=== PATIENT | female | born 1945 | race Caucasian/White ===

== ENCOUNTER → 2020-11-19 07:21 | Outpatient (CLI) | payer MEDICARE, BC, MEDICAID, SELFPAY ==
[2020-11-21 12:11] LABS: Lithium (Eskalith(R)) 0.7 mmol/L (0.5-1.2)
== END ==
PROVIDERS: Visit Provider Emergency Medicine
DX: Z51.81 Encounter for therapeutic drug level monitoring (principal)
CPT/HCPCS: 36415; 80178

== ENCOUNTER → 2020-11-20 08:18 | Outpatient (CLI) | payer MEDICARE, BC, MEDICAID, SELFPAY ==
[2020-11-20 10:46] LABS: Basophils # 0.1 K/mm3 (0-0.2); Basophils % 0.6 % (0.1-2.0); Eosinophils # 0.2 K/mm3 (0.0-0.4); Eosinophils % 2.2 % (0.1-12.0); Hematocrit 41.9 % (37.0-47.0); Hemoglobin 13.8 g/dL (12.2-16.2); Lymphocytes # 1.1 K/mm3 (0.7-4.5); Lymphocytes % 10.4 % (10-50); Mean Corpuscular HGB Conc 32.9 g/dL (31.8-35.4); Mean Corpuscular Hemoglobin 28.1 pg (27.0-31.2); Mean Corpuscular Volume 85.4 fl (81-99); Mean Platelet Volume 9.3 fl (7.4-10.4); Monocytes # 0.5 K/mm3 (0.1-1.0); Monocytes % 5.2 % (1.7-9.3); Neutrophils # 8.3 K/mm3 (1.8-7.8); Neutrophils % 81.7 % (37.0-80.0); Platelet Count 257 K/mm3 (142-424); Red Blood Count 4.91 M/mm3 (4.20-5.40); Red Cell Distribution Width 15.2 % (11.5-17.5); White Blood Count 10.1 K/mm3 (4.8-10.8)
[2020-11-20 11:17] LABS: Chloride 106 mmol/L (98-107); Sodium 138 mmol/L (136-145)
[2020-11-20 11:20] LABS: Blood Urea Nitrogen 13 mg/dl (7-17); Estimated Glomerular Filt Rate 54 ml/min (>60); GFR (African American) 66 ML/MIN (>60)
[2020-11-20 11:21] LABS: Calcium 9.2 mg/dl (8.4-10.2); Carbon Dioxide 20 mmol/L (22.0-30.0); Glucose 95 mg/dl (74-100)
== END ==
PROVIDERS: Visit Provider Emergency Medicine
DX: I10 Essential (primary) hypertension (principal)
CPT/HCPCS: 36415; 80048; 85025

== ENCOUNTER 2021-03-20 03:43 | Inpatient (IN) | payer MEDICARE, MEDICAID, SELFPAY ==
[2021-03-20] VITALS (32 sets, daily range): BP systolic 104–138; BP diastolic 42–88; PULSE 71–110; RESP 12–21; TEMP 36.6–43; O2SAT 86–98; BMI 31.1; BMI 32.3
[2021-03-20 04:21] LABS: Basophils # 0.1 K/mm3 (0-0.2); Basophils % 0.8 % (0.1-2.0); Eosinophils # 0.1 K/mm3 (0.0-0.4); Eosinophils % 0.5 % (0.1-12.0); Hematocrit 53.5 % (37.0-47.0); Hemoglobin 17.8 g/dL (12.2-16.2); Lymphocytes # 1.3 K/mm3 (0.7-4.5); Lymphocytes % 10.9 % (10-50); Mean Corpuscular HGB Conc 33.2 g/dL (31.8-35.4); Mean Corpuscular Hemoglobin 28.5 pg (27.0-31.2); Mean Corpuscular Volume 85.9 fl (81-99); Mean Platelet Volume 9.4 fl (7.4-10.4); Monocytes # 0.9 K/mm3 (0.1-1.0); Monocytes % 7.9 % (1.7-9.3); Neutrophils # 9.4 K/mm3 (1.8-7.8); Platelet Count 439 K/mm3 (142-424); Red Blood Count 6.23 M/mm3 (4.20-5.40); Red Cell Distribution Width 13.3 % (11.5-17.5); White Blood Count 11.8 K/mm3 (4.8-10.8)
[2021-03-20 04:27] LABS: Alanine Aminotransferase 23 U/L (12-78); Albumin Level 3.9 g/dl (3.5-5.0); Albumin/Globulin Ratio 1.1 (1.1-1.8); Alkaline Phosphatase 78 U/L (38-126); Anion Gap 15.4 mEq/L (5-15); Aspartate Amino Transferase 21 U/L (14-36); Bilirubin,Total 0.7 mg/dl (0.2-1.3); Blood Urea Nitrogen 77 mg/dl (7-17); Calcium 8.5 mg/dl (8.4-10.2); Carbon Dioxide 39 mmol/L (22.0-30.0); Creatinine Clearance Estimated 30 mL/min (50-200); Estimated Glomerular Filt Rate 24 ml/min (>60); GFR (African American) 30 ML/MIN (>60); Globulin 3.5 g/dL (1.3-3.2); Glucose 156 mg/dl (74-100); Potassium 3.4 mmoL/L (3.5-5.1); Sodium 126 mmol/L (136-145); Total Protein,Serum 7.4 g/dl (6.3-8.2)
[2021-03-20 04:32] LABS: C-Reactive Protein 241.4 mg/L (0-4)
[2021-03-20 04:37] LABS: Chloride 75 mmol/L (98-107)
--- NOTE | 2021-03-20 04:42 | PC.NURSE ---
notified of critcal chorline 77
[2021-03-20 04:46] LABS: Procalcitonin 1.19 ng/mL (0.0-2.0)
[2021-03-20 04:53] LABS: Amylase 45 U/L (30-110); Lipase 11 U/L (23-300)
[2021-03-20 04:56] LABS: Erythrocyte Sedimentation Rate 1 mm/hr (0-30)
--- NOTE | 2021-03-20 05:12 | CT_ITS ---
PROCEDURE INFORMATION: Exam: CT Abdomen And Pelvis Without Contrast Exam date and time: 03/20/2021 5:12 AM Age: 75 years old Clinical indication: Nausea and vomiting; Abdominal pain; Generalized; Prior surgery TECHNIQUE: Imaging protocol: Computed tomography of the abdomen and pelvis without contrast. Radiation optimization: All CT scans at this facility use at least one of these dose optimization techniques: automated exposure control; mA and/or kV adjustment per patient size (includes targeted exams where dose is matched to clinical indication); or iterative reconstruction. COMPARISON: No relevant prior studies available. FINDINGS: Lungs: Patchy airspace consolidation is seen in the dependent portions of the right middle and lower lobes, compatible with either multifocal pneumonia or aspiration pneumonitis. There is a 1.9 x 1.4 cm fluid attenuation nodule in the medial basal portion of the left lower lobe (series 3, image 21), possibly related to chronic mucoid impaction. Pleural spaces: Trace right pleural effusion. Heart: Normal heart size. Coronary calcifications, not formally quantified on this exam. Mediastinal space: Small hiatal hernia. There is esophageal wall thickening suggesting esophagitis, but not fully evaluated on CT. There is fluid within the visualized mid and distal portions of the thoracic esophagus suggesting a large amount of gastroesophageal reflux. Liver: Mild hepatic steatosis. Gallbladder and bile ducts: Cholecystectomy. No biliary dilation. Pancreas: Mild pancreatic atrophy. Coarse calcifications in the pancreatic head suggesting sequela of prior pancreatitis. No findings to suggest acute pancreatitis. Spleen: Normal. No splenomegaly. Adrenal glands: Normal. No mass. Kidneys and ureters: Kidneys are mildly atrophic. No hydronephrosis. Stomach and bowel: Stomach is fluid-filled and distended. There is abnormal dilation of proximal and mid small bowel measure up to 4.5 cm in caliber. There is an abrupt transition point as small bowel enters the ventral abdominal hernia sac, with decompressed distal small bowel seen in the right lower quadrant. Findings are consistent with an acute high-grade mechanical small bowel obstruction. Colon is diffusely decompressed. There are numerous colonic diverticula, without evidence of acute diverticulitis. Appendix: No evidence of appendicitis. Intraperitoneal space: No pneumoperitoneum. No ascites. Vasculature: Scattered atherosclerotic calcifications. No abdominal aortic aneurysm. Lymph nodes: Prominent posterior mediastinal lymph nodes adjacent to the esophagus measuring up to 0.8 cm in short axis, probably reactive to esophagitis. Urinary bladder: Bladder is decompressed, limiting its evaluation. Reproductive: Hysterectomy. Bones/joints: No acute fracture. Prominent disc-osteophyte ridge at L5-S1 with associated neural foraminal stenosis. Rudimentary disc space at S1-S2. Mild levoconvex curvature. [id number] left and mild right hip osteoarthrosis. Soft tissues: Ventral abdominal hernia sac measuring approximately 8.7 x 5.7 x 8.1 cm, serving as transition point for the small-bowel obstruction. There is edema and vascular congestion within the hernia sac. Hernia neck measures approximately 2 cm. IMPRESSION: 1. Acute, high-grade mechanical small bowel obstruction with transition point in a ventral abdominal hernia sac. No bowel perforation. 2. Small hiatal hernia with suggested large amount of gastroesophageal reflux. 3. Patchy airspace consolidation in the right middle and lower lobes compatible with either pneumonia or aspiration pneumonitis. 4. Incid
--- NOTE | 2021-03-20 06:13 | PC.NURSE ---
MD Naldo speaking to [facility] at this time
--- NOTE | 2021-03-20 06:15 | XR_ITS ---
PROCEDURE INFORMATION: Exam: XR Chest Exam date and time: 03/20/2021 6:15 AM Age: 75 years old Clinical indication: Pain; On breathing TECHNIQUE: Imaging protocol: XR of the chest. Views: 1 view. COMPARISON: CT ABDOMEN PELVIS WO CON 03/20/2021 5:35 AM FINDINGS: Lungs: Patchy and nodular opacities are seen throughout the right mid to lower lung compatible with pneumonia or aspiration pneumonitis. Suggested 1.8 cm nodule at the left lung base in the retrocardiac region, as seen on CT abdomen/pelvis. Lungs appear hyperinflated, suggesting COPD. Pleural spaces: Trace right pleural effusion. No pneumothorax. Heart/Mediastinum: Normal heart size. Aortic atherosclerosis. Bones/joints: Osteopenia. Scattered degenerative changes. Gastrointestinal tract: Dilated small bowel is seen in the upper abdomen compatible with known small bowel obstruction. IMPRESSION: 1. Multifocal pneumonia or aspiration pneumonitis throughout the right mid and lower lung. Trace right pleural effusion. 2. COPD suggested. 3. Left basilar nodule, as better seen on CT.
--- NOTE | 2021-03-20 06:22 | ECG_ITS ---
APPROVED REPORT Exam: Resting ECG HR:104 bpm ECG Measurements Heart Rate 104 AXES CA 170 P 56 QRSd 78 QRS -55 QT 370 T 46 QTc 486 Conclusion Sinus tachycardia with premature atrial complexes Left anterior fascicular block Late R wave progression, old finding Abnormal ECG Electronically signed by : Baljit Hutson MD 03/21/2021 17:50:16
--- NOTE | 2021-03-20 06:26 | HMH.EDNVD ---
ED Disposition Clinical Impression: Small bowel obstruction, Severe sepsis with acute organ dysfunction, Ventral hernia with bowel obstruction, DYLAN (acute kidney injury), Hyponatremia, Obesity (BMI 30.0-34.9) Aspiration pneumonia Qualifiers: Aspiration pneumonia type: due to vomit Laterality: right Lung location: lower lobe of lung Qualified Code(s): J69.0 - Pneumonitis due to inhalation of food and vomit Unspecified dementia without behavioral disturbance Qualifiers: Dementia type: unspecified type Qualified Code(s): F03.90 - Unspecified dementia without behavioral disturbance Bipolar disorder, unspecified Qualifiers: Active/Remission status: remission status unspecified Qualified Code(s): F31.9 - Bipolar disorder, unspecified Disposition: Admitted As Inpatient Condition on Discharge: Serious - Critical Care Critical Care Time: No Attestation: On 03/20/21, the high probability of a clinically significant, sudden or life threatening deterioration of the following system(s) required my full and direct attention, intervention and personal management. The time I documented below is in addition to time spent performing reported procedures but includes the following listed in this critical care notation. Medical Decision Making - Medical Records Medical records reviewed: Yes: I reviewed the patient's medical records. - Ernesto Inquiry Pt receiving controlled substance: No Vital Signs: 03/20/21 03:44 03/20/21 04:19 03/20/21 05:00 Temperature 98.5 F Temperature Source Oral Pulse Rate 110 H 100 H Pulse Rate [Right Radial] 110 H Respiratory Rate 21 Blood Pressure 127/66 114/68 Blood Pressure [Right Arm] 118/61 Blood Pressure Mean [Right Arm] 80 Blood Pressure Source [Right Arm] Automatic Cuff Blood Pressure Position [Right Arm] Supine 02 Sat by Pulse Oximetry 86 L 95 95 Oxygen Delivery Method Room Air Oxygen Flow Rate (LPM) 2 2 03/20/21 06:00 03/20/21 06:30 Temperature Temperature Source Pulse Rate 99 H 102 H Pulse Rate [Right Radial] Respiratory Rate Blood Pressure 138/69 119/69 Blood Pressure [Right Arm] Blood Pressure Mean [Right Arm] Blood Pressure Source [Right Arm] Blood Pressure Position [Right Arm] 02 Sat by Pulse Oximetry 92 L 92 L Oxygen Delivery Method Nasal Cannula Oxygen Flow Rate (LPM) 2 - Lab Data Lab results reviewed: Yes: I reviewed the patient's lab results. Lab Results 03/20/21 04:00: WBC 11.8 H, RBC 6.23 H, Hgb 17.8 H, Hct 53.5 H, MCV 85.9, MCH 28.5, MCHC 33.2, RDW 13.3, Plt Count 439 H, MPV 9.4, Neut % (Auto) 80.0, Lymph % (Auto) 10.9, [place] % (Auto) 7.9, Eos % (Auto) 0.5, Baso % (Auto) 0.8, Neut # (Auto) 9.4 H, Lymph # (Auto) 1.3, [place] # (Auto) 0.9, Eos # (Auto) 0.1, Baso # (Auto) 0.1, ESR 1 03/20/21 04:00: Sodium 126 L, Potassium 3.4 L, Chloride 75 L, Carbon Dioxide 39 H, Anion Gap 15.4 H, BUN 77 H, Creatinine 2.00 H, Estimated Creat Clear 30, Estimated GFR 24 L, Est GFR ( Amer) 30 L, Glucose 156 H, Calcium 8.5, Total Bilirubin 0.7, AST 21, ALT 23, Alkaline Phosphatase 78, C-Reactive Protein 241.4 H, Total Protein 7.4, Albumin 3.9, Globulin 3.5 H, Albumin/Globulin Ratio 1.1, Procalcitonin 1.19 03/20/21 04:00: Amylase 45, Lipase 11 L Result diagrams: 03/20/21 04:00 03/20/21 04:00 Orders (Tests/Meds): ED MEDICATIONS Generic Name Dose Route Start Last Admin Trade Name Freq PRN Reason Stop Dose Admin Sodium Chloride 1,000 mls @ 999 mls/hr 03/20/21 07:00 03/20/21 06:49 Sod Chlor 0.9% 1000ml Bag IV 03/20/21 08:00 999 mls/hr .Q1H1M STEPHON Administration Piperacillin Sod/Tazobactam 50 mls @ 100 mls/hr 03/20/21 07:00 03/20/21 07:08 Sod 3.375 gm/ Sodium Chloride IV 04/03/21 06:59 100 mls/hr Q8H STEPHON Administration Clindamycin Phosphate 900 mg/ 106 mls @ 100 mls/hr 03/20/21 07:00 Sodium Chloride IV 04/03/21 06:59 Q8H STEPHON Discontinued Medications Generic Name Dose Route Start Last Admin Trade Name
--- NOTE | 2021-03-20 06:33 | CA_ITS ---
APPROVED REPORT EXAM: Comprehensive 2D, Doppler, and color-flow Echocardiogram Best Worker: Debi Appiah CRT Ht: 5 ft 2 in Wt: 170lbs BSA: 1.78 BP: 114/68 mmHg Indications: COPD, CAD, Hyperlipidemia, Hypertension/HDD, Pre-Op small bowel obstruction, ex smoker. TDE pt on her back due to abdominal pain and nausea/vomiting. Limited images 2D Dimensions LVOT 2.11 cm (M/F) 1.5-2.5 LA Volume 22.30 mL LA Volume Index 12.50 mL/m2 (M/F) 16-34 M-Mode Dimensions RVDd 2.57 cm (0.9-2.6) LA Diam 3.45 cm (1.9-4.0) LVDd 4.18 cm (3.5-5.7) Ao Diam 4.22 cm (2.0-3.7) LVDs 2.89 cm (3.5-5.7) IVSd 1.81 cm (0.6-1.1) PWd 1.00 cm (0.6-1.1) EF (Teich) 58.90% FS 30.90% EDV (Teich) 77.70 mL TAPSE 1.61 (<1.7) ESV (Teich) 31.90 mL LV Diastology E Decel Time 300.00 (160-240 msec) E/A Ratio 0.41 MED E' 4.90 (< 7 cm/sec) MED A' 8.00 cm/s E'/MED E' Ratio 10.02 (>14) LAT E' 6.20 (<10 cm/sec) LAT A' 10.20 cm/s E/LAT E' Ratio 7.92 (>14) Aortic Valve AO Peak GR. 7.60 mmHg Mitral Valve MV E Max Víctor. 49.00 (40-130 cm/s) MV A Velocity 119.00 (40-130 cm/s) E/A Ratio 0.41 MV Decel. Time 300.00 (160-240 ms) MV PHT 88.00 ms Tricuspid Valve TR P. Velocity 178.00 cm/s RAP Estimate 10.00 mmHg RVSP 22.70 mmHg Left Ventricle Left atrium is mildly enlarged, left ventricle is normal size, mild concentric left ventricular hypertrophy, visually estimated ejection fraction 55% with no obvious regional wall motion abnormality, endocardial surfaces are poorly visualized. Grade 1 diastolic dysfunction seen without tissue Doppler evidence of raise left atrial pressure. Right Ventricle Right atrium and right ventricle are normal size and contractility. Aortic Valve Aortic valve is minimally thickened and calcified without aortic stenosis or aortic insufficiency. Mitral Valve Mitral valve grossly normal, there is trace mitral regurgitation. Tricuspid Valve Tricuspid valve grossly normal, there is trace tricuspid regurgitation, tricuspid regurgitation jet velocity is inadequate for calculation of the right ventricular systolic pressure. Pulmonic Valve Pulmonic valve is poorly visualized. Great Vessels Aortic root is normal size. Inferior vena cava is poorly visualized. Pericardium No significant pericardial effusion noted. Conclusion 1. Technically difficult study because of the patient factors and poor acoustic windows. Mildly enlarged left atrium, normal left ventricular size, mild concentric left ventricular hypertrophy, visually estimated ejection fraction 55% with no obvious regional wall motion abnormality, endocardial surface of poorly visualized, grade 1 diastolic dysfunction seen without tissue Doppler evidence of raise left atrial pressure. 2. Trace mitral and tricuspid regurgitation. 3. No significant pericardial effusion noted. 4. Inferior vena cava is poorly visualized. Electronically signed by : Luke Ponce MD 03/21/2021 11:20:58
--- NOTE | 2021-03-20 06:35 | PC.NURSE ---
notified vascular of echo order @ this time
--- NOTE | 2021-03-20 06:38 | PC.NURSE ---
paged dr banks @ this time
--- NOTE | 2021-03-20 06:38 | PC.NURSE ---
Dr. Ying pagecharissa
[2021-03-20 06:45] LABS: Coronavirus 19, PCR Not Detected (NotDetected); Influenza A, PCR Not Detected (NotDetected); Influenza B, PCR Not Detected (NotDetected)
--- NOTE | 2021-03-20 06:46 | PC.NURSE ---
MD Naldo speaking to MD Deonna at this time
--- NOTE | 2021-03-20 06:57 | PC.NURSE ---
vascular @ bedside to perform echo
[2021-03-20 07:07] LABS: Lactic Acid 1.4 mmol/L (0.7-2.1)
--- NOTE | 2021-03-20 07:20 | PC.NURSE ---
per Dr. cAuña pt needs an NG tube inserted, to continuous low wall suction.
--- NOTE | 2021-03-20 07:37 | HMH.PHAVTE ---
[facility] Pharmacy VTE Monitoring - Patient Demographics Admission date: 03/20/21 Report Date: 03/20/21 Time: 07:37 Allergies/Adverse Reactions: Patient Allergies chlorhexidine [From Hibiclens] Allergy (Verified 03/20/21 07:31) Rash divalproex sodium [From Depakote] Allergy (Verified 03/20/21 07:31) Unknown allergy reaction lidocaine [From Lidoderm] Allergy (Verified 03/20/21 07:31) Rash nicotine [From Nicoderm CQ] Allergy (Verified 03/20/21 07:31) Rash Sulfa (Sulfonamide Antibiotics) Adverse Reaction (Verified 03/20/21 07:31) Nausea Height: 1.57 m Weight: 77.111 kg - VTE Risk Labs: VTE Related Lab Results Hgb 17.8 g/dL (12.2-16.2) H 03/20/21 04:00 Hct 53.5 % (37.0-47.0) H 03/20/21 04:00 Plt Count 439 K/mm3 (142-424) H 03/20/21 04:00 BUN 77 mg/dl (7-17) H 03/20/21 04:00 Creatinine 2.00 mg/dl (0.52-1.04) H 03/20/21 04:00 Estimated Creat Clear 30 mL/min (50-200) 03/20/21 04:00 - Prophylaxis VTE Prophylaxis Ordered?: Yes Types of VTE Prophylaxis: TEDS Knee High Location of Applied Device: Bilateral Lower Extremeties
--- NOTE | 2021-03-20 07:42 | PC.NURSE ---
This nurse with Yul[facility] Palomarse,RN spoke with daughter/POA (Olga Jon) to confirm DNR status.
--- NOTE | 2021-03-20 08:07 | HMH.CNCARD ---
History of Present Illness Consult date: 03/20/21 Requesting physician: Reg Hitchcock Chief complaint: Abdominal pain, pre-op evaluation Additional Medical History:: 1. Hypertension 2. Hyperlipidemia 3. Remote tobacco use A. COPD 4. History of PAD/MART per chart 5. History of CAD per chart 6. Acute renal insufficiency, 03/2021 7. Bowel obstruction, 03/2021 8. Bipolar disorder per correction chart 9. Dementia per correction chart 10. History of seizure disorder per chart History of present illness: 75-year-old white female seen in the ER for 5-day history of bowel discomfort with decreased bowel movement, nausea and vomiting with decreased oral intake. ER evaluation reveals evidence of bowel obstruction. Cardiology has been consulted for preop evaluation. Patient denies any prior history of coronary disease but does admit to remote tobacco use and COPD for which she uses as an inhaler. EKG is sinus rhythm, LAFB and PRWP anteriorly with no acute ST segment changes. Preliminary echocardiogram today shows preserved ejection fraction. [facility] History Medical History: Reports:: Anxiety, Asthma, Chronic Obstructive Pulmonary Disease (COPD), Coronary Artery Disease, Gastroesophageal Reflux Disease(GERD), Hyperlipidemia, Hypertension, Peripheral Artery Disease *Have you ever received a pneumonia vaccine?: Yes *Have you received a flu vaccine this season?: Yes Other Medical History: Reports: Arthritis Laterality Cases: Bilateral: Tonsillectomy Other Surgeries: Yes: Cholecystectomy, Hernia Repair, Hysterectomy-Total - *Social History Smoking Status: Former smoker Alcohol Intake: never Substance Use Type: denies use *Occupational Status:: other *Travel in the last 8 weeks: Inside the [place] - Psychiatric History Pschychiatric History:: Reports:: Anxiety Family Hx:: No significant family history Meds Home Medications Medication Instructions Recorded Confirmed Type albuterol sulfate 90 mcg/actuation 2 puff INHALATION Q4-6H PRN 11/22/20 03/20/21 History aerosol inhaler amlodipine 5 mg tablet 5 mg PO DAILY 11/22/20 03/20/21 History aspirin 81 mg tablet,delayed 81 mg PO DAILY 11/22/20 03/20/21 History release atorvastatin 20 mg tablet 20 mg PO DAILY 11/22/20 03/20/21 History cholecalciferol (vitamin D3) 1,250 1,250 mcg PO WEEKLY 11/22/20 03/20/21 History mcg (50,000 unit) capsule docusate sodium 100 mg capsule 100 mg PO DAILY 11/22/20 03/20/21 History ipratropium 0.5 mg-albuterol 3 mg 3 ml INHALATION Q6H PRN 11/22/20 03/20/21 History (2.5 mg base)/3 mL nebulization soln lamotrigine 200 mg tablet 200 mg PO DAILY 11/22/20 03/20/21 History lithium carbonate 300 mg capsule 300 mg PO BID 11/22/20 03/20/21 History melatonin 5 mg capsule 5 mg PO HS cap 11/22/20 03/20/21 History memantine 5 mg tablet 5 mg PO DAILY 11/22/20 03/20/21 History Acetaminophen 1,000 mg PO Q6HP PRN 03/20/21 03/20/21 History Fluticasone Furoate [Flonase 1 spray NS DAILY 03/20/21 03/20/21 History Sensimist] OLANZapine [Zyprexa] 10 mg PO DAILY 03/20/21 03/20/21 History estradioL [Estrace 1mg tablet] 1 mg PO DAILY 03/20/21 03/20/21 History Allergies Allergy/AdvReac Type Severity Reaction Status Date / Time chlorhexidine Allergy Rash Verified 03/20/21 07:31 [From Hibiclens] divalproex sodium Allergy Unknown Verified 03/20/21 07:31 [From Depakote] allergy reaction lidocaine [From Lidoderm] Allergy Rash Verified 03/20/21 07:31 nicotine [From Nicoderm CQ] Allergy Rash Verified 03/20/21 07:31 Sulfa (Sulfonamide AdvReac Nausea Verified 03/20/21 07:31 Antibiotics) Exam Vital signs and Labs for Last 24 Hours: Temp Pulse Resp BP Pulse Ox 98.5 F 102 H 21 119/69 92 L 03/20/21 03:44 03/20/21 06:30 03/20/21 03:44 03/20/21 06:30 03/20/21 06:30 Laboratory Results - last 24 hr 03/20/21 04:00: WBC 11.8 H, RBC 6.23 H, Hgb 17.8 H, Hct 53.5 H, MCV 85.9, MCH 28.5, MCHC 33.2, RDW 13.3, Plt C
--- NOTE | 2021-03-20 08:13 | XR_ITS ---
PROCEDURE: XR CHEST PORTABLE CLINICAL HISTORY: NG tube placement COMPARISON: CR CXR CHEST(2 VIEWS-NOT PORTABLE) from 06/19/2013 CR CXR CHEST(2 VIEWS-NOT PORTABLE) from 07/02/2013 CR XR CHEST PORTABLE from 03/20/2021 FINDINGS: The NG tube tip is in the region the cardia/upper body of the stomach. No change right-sided pneumonia. Mild cardiomegaly without failure. No acute bony abnormalities. IMPRESSION: NG tube tip in the region of the cardia/upper body of the stomach with no change in the right-sided pneumonia Dictated by: Lucian Blue MD 03/20/2021 09:02 Lucian Blue MD in OV 03/20/2021 09:02
[2021-03-20 08:22] LABS: Microscopic, Urine URINE MICROSCOPIC (MICROSCOPIC)
--- NOTE | 2021-03-20 08:31 | HMH.PHAINT ---
MEDICATION RECONCILIATION COMPLETE USING [facility]
[2021-03-20 08:32] LABS: Appearance,Urine CLEAR (Clear); Blood, Urine Negative (Negative); Color,Urine YELLOW (Yellow); Glucose,Urine (UA) Negative (Negative); Leukocyte Esterase,Urine Negative (Negative); Nitrate,Urine Negative (Negative); PH,Urine 5.5 (5.0-8.5); Protein,Urine Negative (Negative); Specific Gravity, Urine >= 1.030 (1.005-1.030); Urobilinogen,Urine 0.2 EU/dl (0.2)
[2021-03-20 08:43] LABS: Bilirubin,Urine 1+ (Negative)
[2021-03-20 08:44] LABS: Ketones,Urine TRACE (Negative)
[2021-03-20 08:51] LABS: Amorphous Sediment,Urine 1+ /lpf
--- NOTE | 2021-03-20 09:03 | PC.NURSE ---
report given to rosales bardales at this time
--- NOTE | 2021-03-20 10:48 | HMH.GSCON ---
*Admission Date: 03/20/21 *Reason for consult:: Bowel obstruction from hernia *History of present illness: Patient is a 75-year-old patient with reported bipolar disorder who is a [facility] resident. She was brought into the emergency department in the over short and damage clerk hours this morning. halfway reports the patient has been vomiting for 4 days and has not had a bowel movement during that amount of time. The vomitus is described as dark brown emesis. She is also had some lower abdominal pain associated with the vomiting with hypoactive bowel sounds. Evaluation in the emergency department included CT scan which revealed findings of acute high-grade mechanical bowel obstruction with transition point in a ventral abdominal hernia without bowel perforation. CT scan reveals the neck of the hernia to measure approximately 2 cm. She also had findings of possible pneumonia on imaging. Laboratory evaluation reveals mild hyponatremia with appreciably elevated BUN and creatinine as well as hemoglobin and hematocrit consistent with dehydration. Review of Systems - Review of Systems Review of systems:: unable to obtain - *Neurologic Denies headache(s), Denies seizure-like activity [facility] History I have reviewed the patient's past medical history: Yes Medical History: Reports:: Anxiety, Asthma, Chronic Obstructive Pulmonary Disease (COPD), Coronary Artery Disease, Gastroesophageal Reflux Disease(GERD), Hyperlipidemia, Hypertension, Peripheral Artery Disease *Have you ever received a pneumonia vaccine?: Yes *Have you received a flu vaccine this season?: Yes Other Medical History: Reports: Arthritis Laterality Cases: Bilateral: Tonsillectomy Other Surgeries: Yes: Cholecystectomy, Hernia Repair, Hysterectomy-Total - *Social History Smoking Status: Former smoker Alcohol Intake: never Substance Use Type: denies use *Occupational Status:: other *Travel in the last 8 weeks: None - Psychiatric History Pschychiatric History:: Reports:: Anxiety Family Hx:: No significant family history Meds Home Medications Medication Instructions Recorded Confirmed Type albuterol sulfate 90 mcg/actuation 2 puff INHALATION Q4-6H PRN 11/22/20 03/20/21 History aerosol inhaler amlodipine 5 mg tablet 5 mg PO DAILY 11/22/20 03/20/21 History aspirin 81 mg tablet,delayed 81 mg PO DAILY 11/22/20 03/20/21 History release atorvastatin 20 mg tablet 20 mg PO DAILY 11/22/20 03/20/21 History cholecalciferol (vitamin D3) 1,250 1,250 mcg PO WEEKLY 11/22/20 03/20/21 History mcg (50,000 unit) capsule docusate sodium 100 mg capsule 100 mg PO DAILY 11/22/20 03/20/21 History ipratropium 0.5 mg-albuterol 3 mg 3 ml INHALATION Q6H PRN 11/22/20 03/20/21 History (2.5 mg base)/3 mL nebulization soln lamotrigine 200 mg tablet 200 mg PO DAILY 11/22/20 03/20/21 History lithium carbonate 300 mg capsule 300 mg PO BID 11/22/20 03/20/21 History melatonin 5 mg capsule 5 mg PO HS cap 11/22/20 03/20/21 History memantine 5 mg tablet 5 mg PO DAILY 11/22/20 03/20/21 History Acetaminophen 1,000 mg PO Q6HP PRN 03/20/21 03/20/21 History Fluticasone Furoate [Flonase 1 spray NS DAILY 03/20/21 03/20/21 History Sensimist] OLANZapine [Zyprexa] 10 mg PO DAILY 03/20/21 03/20/21 History estradioL [Estrace 1mg tablet] 1 mg PO DAILY 03/20/21 03/20/21 History Allergies Allergy/AdvReac Type Severity Reaction Status Date / Time chlorhexidine Allergy Rash Verified 03/20/21 07:31 [From Hibiclens] divalproex sodium Allergy Unknown Verified 03/20/21 07:31 [From Depakote] allergy reaction lidocaine [From Lidoderm] Allergy Rash Verified 03/20/21 07:31 nicotine [From Nicoderm CQ] Allergy Rash Verified 03/20/21 07:31 Sulfa (Sulfonamide AdvReac Nausea Verified 03/20/21 07:31 Antibiotics) Exam Vital signs and Labs for Last 24 Hours: Temp Pulse Resp BP Pulse Ox 98.1 F 99 H 16 123/71 95 03/20/21 09:59 03/20/21 09:59 03/20/21 09:59 03/20/21 09:59 03/20
--- NOTE | 2021-03-20 10:56 | PC.NURSE ---
pt to surgery at this time
--- NOTE | 2021-03-20 11:58 | HMH.ANESCL ---
[facility] Anesthesia Checklist - Patient Identification Patient Identification: Arm Band - Structural Data Admitted From: Inpatient Planned Operative Procedure/s: Exploratory Laparotomy, Possible Bowel Resection Consent for Planned Operative Procedure(s) Verified: Yes Verified Documents: Surgical Consent, History and Physical - NPO Status Verified Time NPO: 00:00 - Additional verifications Anesthesia Reactions: No - Airway Assessment C-Spine Mobility Assessed: Yes TMJ Mobility Assessed: Yes Dentition: Edentulous - Neurological Assessment Level of Consciousness: Lethargic, Sedated - Anesthesia Plan Anesthesia Risk discussed: Yes Anesthesia Plan: Verified (with family member over the phone) ASA Class: III (e) Anesthesia Type: General - Preoperative Comments Pre-Operative Comments: Pt is lethargic and unable to answer any preoperative questions most likely d/t dose of ativan administered in ER. Discussed plan of care with pt's family member over the phone. She expressed concern regarding pt remaining intubated after Knee surgery 2 years ago. I discussed the risks of that happening again d/t pt's condition and family member verbalized understanding [facility] History I have reviewed the patient's past medical history: Yes Medical History: Reports:: Anxiety, Asthma, Chronic Obstructive Pulmonary Disease (COPD), Coronary Artery Disease, Gastroesophageal Reflux Disease(GERD), Hyperlipidemia, Hypertension, Peripheral Artery Disease *Have you ever received a pneumonia vaccine?: Yes *Have you received a flu vaccine this season?: Yes Other Medical History: Reports: Arthritis Anesthesia experience/problems:: nac Laterality Cases: Bilateral: Tonsillectomy Other Surgeries: Yes: Cholecystectomy, Hernia Repair, Hysterectomy-Total - *Social History Smoking Status: Former smoker Alcohol Intake: never Substance Use Type: denies use *Occupational Status:: other *Travel in the last 8 weeks: None - Psychiatric History Pschychiatric History:: Reports:: Anxiety Family Hx:: No significant family history
--- NOTE | 2021-03-20 12:52 | SW/DCPLANNER ---
Addendum entered by Landy Day 03/25/21 09:13: I have informed Grazyna that the plan for this patient is to discharge back today. Grazyna has stated that patient will need an additional COVID swab prior to returning. Patients daughter left me a voicemail over the weekend stating that she is interested in Psychiatric Care for this patient: Dr Hitchcock/Zoila have stated that they will add a Marlen Mayo Consult for this patient. I will update daughter. PT/OT evaluation has also been ordered for today. Addendum entered by Landy Day 03/22/21 11:02: Patients daughter has called and stated that she is fine with this patient returning to [facility] at time of discharge. Addendum entered by Landy Guildhall 03/21/21 09:44: I have updated Grazyna with [facility] regarding this patient: discharge date is unknown at this time. Addendum entered by Landy Day 03/20/21 13:13: Patients daughter has called me expressing an interest in placing patient elsewhere at time of discharge. Daughter stated that she spoke with Shanika (Joann Ramires) regarding situation with [facility] and she directed her to contact me. I did inform daughter that due to pandemic and other situations (Medicaid and history of mental illness w/ Inpatient psychiatric stay) this could be difficult to transfer. I gave daughter a list of facilities and she stated that she would call me back if she is interested: I will fax referral for other facilities to review information. Discharge date is unknown at this time. Original Note: This patient currently resides at [facility]. I spoke with Grazyna from [facility] to confirm that patient is ICF level of care. I will follow up with Grazyna once patient is medically stable for discharge.
--- NOTE | 2021-03-20 12:55 | HMH.HP ---
*Admission Date: 03/20/21 *Chief complaint: vomiting *History of present illness: this patient was sent from [facility] to [facility] ed with abdswelling and vomiting with hx of dec po intake -pt was seen in the ed with acute sbo - possible incarcerated ventral hernia and flores and was admitted [facility] History I have reviewed the patient's past medical history: Yes Medical History: Reports:: Anxiety, Asthma, Chronic Obstructive Pulmonary Disease (COPD), Coronary Artery Disease, Gastroesophageal Reflux Disease(GERD), Hyperlipidemia, Hypertension, Peripheral Artery Disease *Have you ever received a pneumonia vaccine?: Yes *Have you received a flu vaccine this season?: Yes Other Medical History: Reports: Arthritis Anesthesia experience/problems:: nac Laterality Cases: Bilateral: Tonsillectomy Other Surgeries: Yes: Cholecystectomy, Hernia Repair, Hysterectomy-Total - *Social History Smoking Status: Former smoker Alcohol Intake: never Substance Use Type: denies use *Occupational Status:: other *Travel in the last 8 weeks: None - Psychiatric History Pschychiatric History:: Reports:: Anxiety Family Hx:: No significant family history Review of Systems - Review of Systems Review of systems:: pertinent systems reviewed and negative unless documented below - Constitutional Denies fever(s) - Eyes Denies change in vision - ENT Denies sore throat - *Cardiovascular Denies chest pain at rest - *Respiratory Denies cough - *Gastrointestinal Reports abdominal pain, Reports nausea, Reports vomiting - *Genitourinary Denies blood in urine - *Musculoskeletal Denies joint pain - Integumentary/Breasts Denies rash - *Neurologic Denies headache(s), Denies seizure-like activity - Psychiatric Denies behavioral changes Meds Home Medications Medication Instructions Recorded Confirmed Type albuterol sulfate 90 mcg/actuation 2 puff INHALATION Q4-6H PRN 11/22/20 03/20/21 History aerosol inhaler amlodipine 5 mg tablet 5 mg PO DAILY 11/22/20 03/20/21 History aspirin 81 mg tablet,delayed 81 mg PO DAILY 11/22/20 03/20/21 History release atorvastatin 20 mg tablet 20 mg PO DAILY 11/22/20 03/20/21 History cholecalciferol (vitamin D3) 1,250 1,250 mcg PO WEEKLY 11/22/20 03/20/21 History mcg (50,000 unit) capsule docusate sodium 100 mg capsule 100 mg PO DAILY 11/22/20 03/20/21 History ipratropium 0.5 mg-albuterol 3 mg 3 ml INHALATION Q6H PRN 11/22/20 03/20/21 History (2.5 mg base)/3 mL nebulization soln lamotrigine 200 mg tablet 200 mg PO DAILY 11/22/20 03/20/21 History lithium carbonate 300 mg capsule 300 mg PO BID 11/22/20 03/20/21 History melatonin 5 mg capsule 5 mg PO HS cap 11/22/20 03/20/21 History memantine 5 mg tablet 5 mg PO DAILY 11/22/20 03/20/21 History Acetaminophen 1,000 mg PO Q6HP PRN 03/20/21 03/20/21 History Fluticasone Furoate [Flonase 1 spray NS DAILY 03/20/21 03/20/21 History Sensimist] OLANZapine [Zyprexa] 10 mg PO DAILY 03/20/21 03/20/21 History estradioL [Estrace 1mg tablet] 1 mg PO DAILY 03/20/21 03/20/21 History Allergies Allergy/AdvReac Type Severity Reaction Status Date / Time chlorhexidine Allergy Rash Verified 03/20/21 07:31 [From Hibiclens] divalproex sodium Allergy Unknown Verified 03/20/21 07:31 [From Depakote] allergy reaction lidocaine [From Lidoderm] Allergy Rash Verified 03/20/21 07:31 nicotine [From Nicoderm CQ] Allergy Rash Verified 03/20/21 07:31 Sulfa (Sulfonamide AdvReac Nausea Verified 03/20/21 07:31 Antibiotics) Exam Vital signs and Labs for Last 24 Hours: Temp Pulse Resp BP Pulse Ox 98.1 F 99 H 16 123/71 95 03/20/21 09:59 03/20/21 09:59 03/20/21 09:59 03/20/21 09:59 03/20/21 09:59 Laboratory Results - last 24 hr 03/20/21 04:00: WBC 11.8 H, RBC 6.23 H, Hgb 17.8 H, Hct 53.5 H, MCV 85.9, MCH 28.5, MCHC 33.2, RDW 13.3, Plt Count 439 H, MPV 9.4, Neut % (Auto) 80.0, Lymph % (Auto) 10.9, [place] % (Auto) 7.9, Eos % (Auto) 0.5, Baso % (Auto
--- NOTE | 2021-03-20 13:24 | HMH.OPNOTE ---
Date of procedure: 03/20/21 Pre-op Diagnosis:: Small bowel obstruction secondary to incarcerated ventral hernia Post-op Diagnosis:: Same Procedure performed:: Laparotomy, release of small bowel obstruction secondary to incarcerated ventral hernia, small bowel resection with primary anastomosis, primary repair of ventral hernia without mesh Surgeon:: Kyrie Ying MD FIELD SALES REPRESENTATIVE:: Sarah Alvarado Anesthesia: GETA Estimated blood loss (mL): 15 Clinical Note:: Patient is a 75-year-old patient with reported bipolar disorder who is a senior care resident. At the time of consultation history was unable to be obtained from the patient due to administration of Ativan for nasogastric tube placement. She was brought into the emergency department in the director of rotc hours this morning. senior living reports the patient has been vomiting for 4 days and has not had a bowel movement during that amount of time. The vomitus is described as dark brown emesis. She is also had some lower abdominal pain associated with the vomiting with hypoactive bowel sounds. Evaluation in the emergency department included CT scan which revealed findings of acute high-grade mechanical bowel obstruction with transition point in a ventral abdominal hernia without bowel perforation. CT scan reveals the neck of the hernia to measure approximately 2 cm. She also had findings of possible pneumonia on imaging. Laboratory evaluation reveals mild hyponatremia with appreciably elevated BUN and creatinine as well as hemoglobin and hematocrit consistent with dehydration. Patient was seen and examined as a surgical consultation. She had incarcerated and potentially strangulated ventral hernia with loop of bowel. Plan was made for emergent laparotomy. Operative findings:: Patient had a hernia above her umbilicus with evidence of previous umbilical hernia repair with mesh placement. There was large amount of chronically incarcerated omentum with a loop of small bowel within the hernia defect. Loop of small bowel was essentially strangulated without full-thickness necrosis or perforation. Operative note:: Patient was taken to the operating room emergently. She was given preoperative intravenous antibiotics. In the operating room she was placed in a supine position. General anesthesia was induced. Abdomen was prepped and draped in the standard surgical fashion. A limited midline laparotomy incision was made in the midline. Hernia defect was noted supraumbilical and slightly to the right of the midline. Dissection was carried down through subcutaneous tissues. Hernia sac was encountered. She had a rather large hernia sac. This was dissected free from subcutaneous tissues down to the fascia. The neck of the hernia sac was controlled. Exposure was achieved. Hernia sac was opened. There was a large amount of omentum. This was congested to consistent with early incarceration. Much of the extraneous peritoneum from the hernia sac was excised using electrocautery and sent off as specimen. The omentum was unable to be reduced despite opening the fascia somewhat. Therefore the herniated omentum was sequentially clamped divided and ligated with Vicryl ties. This was sent off with the specimen as hernia sac and contents. The loop of bowel was inspected. It was tightly pinched with evidence of strangulation without full-thickness necrosis or perforation. Resection of this loop of bowel was necessary. The bowel was divided proximal and distal to the area of strangulation with a NAUN-75 stapling device. The small bowel mesentery was divided with the Enseal device. Small bowel was sent off as specimen. A [id number] anastomosis was created with the NAUN 75 stapling device. The enterotomy defect was closed with a TX 60 B stapling device. 3-0 Surgilon sutures were placed at the staple line angle. The mesenteric defect was closed with a running 2-0 Vicryl. Small bowel was then returned to the
--- NOTE | 2021-03-20 13:32 | P.PN_ITS ---
[facility] Anesthesia Record Part I Intake, IV Amount: 800 Estimated blood loss (mL): 50 Urine output (mL): 100 Blood Pressure: 127/64 SaO2: 93 Pulse Rate: 82 Respiratory Rate: 16 Temperature: 98.5 F Patient is:: Drowsy Stable to PACU at:: 13:32
--- NOTE | 2021-03-20 18:39 | P.PN_ITS ---
[facility] Anesthesia Record Part II Discharge Time: 14:02 Destination: Medical Surgical Department PACU nurse assessment reviewed?: Yes Patient Condition:: Good Anesthesia Complications:: None Swallowing reflex intact?: Yes Cyanosis?: No Blood Pressure: 125/60 Pulse Rate: 89 Temperature: 98.4 F Mental Status: Alert & Oriented Pain level:: 0 Nausea and/or vomitting:: None Intake, IV Amount: 0
[2021-03-21] VITALS: BP 126/78; PULSE 95; RESP 18; TEMP 37.1; O2SAT 96
[2021-03-21 03:42] VITALS: BP 128/57; PULSE 89; RESP 18; TEMP 36.8; O2SAT 94
[2021-03-21 05:09] LABS: Lithium (Eskalith(R)) <0.1 mmol/L (0.5-1.2)
[2021-03-21 05:18] VITALS: BMI 32.2
[2021-03-21 06:43] LABS: Basophils % 0.2 % (0.1-2.0); Eosinophils % 0.2 % (0.1-12.0); Hematocrit 43.3 % (37.0-47.0); Lymphocytes # 0.9 K/mm3 (0.7-4.5); Lymphocytes % 10.2 % (10-50); Mean Corpuscular HGB Conc 32.3 g/dL (31.8-35.4); Mean Corpuscular Hemoglobin 28.6 pg (27.0-31.2); Mean Corpuscular Volume 88.7 fl (81-99); Mean Platelet Volume 9.3 fl (7.4-10.4); Monocytes # 0.8 K/mm3 (0.1-1.0); Monocytes % 8.6 % (1.7-9.3); Neutrophils # 7.3 K/mm3 (1.8-7.8); Neutrophils % 80.7 % (37.0-80.0); Platelet Count 352 K/mm3 (142-424); Red Blood Count 4.89 M/mm3 (4.20-5.40); Red Cell Distribution Width 13.8 % (11.5-17.5)
--- NOTE | 2021-03-21 06:45 | PC.NURSE ---
Midline incision with DSG in place. C/D/I. NG to (R) nare with 400 ml total drainage for shift. Green to brown with scant blood noted. Pt has c/o discomfort x2 this shift. Medicated per aug. VSS. No other concerns at this time. Will continue to monitor.
--- NOTE | 2021-03-21 06:50 | PC.NURSE ---
notified of critical lab value.
[2021-03-21 06:55] LABS: Chloride 91 mmol/L (98-107); Sodium 134 mmol/L (136-145)
[2021-03-21 06:59] LABS: Anion Gap 10.8 mEq/L (5-15); Blood Urea Nitrogen 51 mg/dl (7-17); Calcium 7.1 mg/dl (8.4-10.2); Carbon Dioxide 35 mmol/L (22.0-30.0); Creatinine Clearance Estimated 57 mL/min (50-200); Estimated Glomerular Filt Rate 44 ml/min (>60); GFR (African American) 53 ML/MIN (>60); Glucose 104 mg/dl (74-100)
[2021-03-21 07:06] LABS: Potassium 2.8 mmoL/L (3.5-5.1)
[2021-03-21 08:00] VITALS: BP 124/61; PULSE 92; RESP 15; TEMP 36.9; O2SAT 96
--- NOTE | 2021-03-21 08:00 | XR_ITS ---
PROCEDURE: XR CHEST PORTABLE CLINICAL HISTORY: sob COMPARISON: CR CXR CHEST(2 VIEWS-NOT PORTABLE) from 07/02/2013 CR XR CHEST PORTABLE from 03/20/2021 CR XR CHEST PORTABLE from 03/20/2021 FINDINGS: The cardiomediastinal silhouette and pulmonary vascularity are within normal limits. The ill-defined pneumonic infiltrate right perihilar region and right lower lobe shows slight partial clearing especially in the perihilar region compared to yesterday's study. The NG tube remains within the esophagus and upper portion of the stomach. IMPRESSION: Slight interval clearing right perihilar and right lower lobe pneumonia Dictated by: Dr. Dave Mccarthy MD 03/21/2021 11:01 Dr. Dave Mccarthy MD in OV 03/21/2021 11:01
--- NOTE | 2021-03-21 08:54 | HMH.ACPN2 ---
Internal Medicine - PN: Subj *Date: 03/21/21 *Time: 18:59 Interval history: 75-year-old female patient resting in bed quietly NG tube is in place. Oxygen saturation 96% on 2 L per nasal cannula. A Laparotomy, release of small bowel obstruction secondary to incarcerated ventral hernia, small bowel resection with primary anastomosis, primary repair of ventral hernia without mesh was performed yesterday by general surgery. She does report generalized abdominal tenderness, requesting diet and fluids. Explained she cannot have a anything by mouth and reason for that she still requesting fluids. Dressing to midline abdominal clean dry and intact Exam Vital signs and Labs for Last 24 Hours: Temp Pulse Resp BP Pulse Ox 98.4 F 88 17 121/52 L 93 L 03/21/21 16:00 03/21/21 16:00 03/21/21 16:00 03/21/21 16:00 03/21/21 16:00 Laboratory Results - last 24 hr 03/20/21 05:15: [place] <0.1 L 03/21/21 06:10: WBC 9.0, RBC 4.89, Hgb 14.0, Hct 43.3, MCV 88.7, MCH 28.6, MCHC 32.3, RDW 13.8, Plt Count 352, MPV 9.3, Neut % (Auto) 80.7 H, Lymph % (Auto) 10.2, [place] % (Auto) 8.6, Eos % (Auto) 0.2, Baso % (Auto) 0.2, Neut # (Auto) 7.3, Lymph # (Auto) 0.9, [place] # (Auto) 0.8, Eos # (Auto) 0.0, Baso # (Auto) 0.0 03/21/21 06:10: Sodium 134 L, Potassium 2.8 L*, Chloride 91 L, Carbon Dioxide 35 H, Anion Gap 10.8, BUN 51 H D, Creatinine 1.20 H D, Estimated Creat Clear 57, Estimated GFR 44 L, Est GFR ( Amer) 53 L D, Glucose 104 H, Calcium 7.1 L I & O for Last 24 hours: Intake & Output 03/18/21 03/19/21 03/20/21 03/21/21 23:59 23:59 23:59 23:59 Intake Total 1900 / 1900 1246 / 1246 Output Total 1750 / 2390 1790 / 1790 Balance 150 / -490 -544 / -544 Weight 189 lb 9.561 oz 189 lb - Constitutional no acute distress - *Routine HEENT Exam Head: Present: normocephalic Eye: Present: EOMI ENT: Present: mucous membranes moist - *Routine Neck Exam Present: trachea midline. Absent: tracheal deviation - *Routine Respiratory Exam Present: CTA bilaterally - *Routine Cardiovascular Exam Present: RRR - *Routine Abdominal Exam Present: soft, tenderness. Absent: normoactive bowel sounds - *Routine Extremities Exam Present: full ROM, pulses intact. Absent: cyanosis, calf tenderness - *Routine Skin Exam Present: dry, wounds. Absent: intact Comments: Midline abdominal incision clean/dry/intact - *Routine Neurological Exam Present: alert, moving all extremities Assessment and Plan (1) Small bowel obstruction Status: Acute Category: Medical Code(s): K56.609 - Unspecified intestinal obstruction, unspecified as to partial versus complete obstruction (2) DYLAN (acute kidney injury) Status: Acute Category: Medical Code(s): N17.9 - Acute kidney failure, unspecified (3) Aspiration pneumonia Status: Acute Qualifiers: Aspiration pneumonia type: due to vomit Laterality: right Lung location: lower lobe of lung Qualified Code(s): J69.0 - Pneumonitis due to inhalation of food and vomit Category: Medical Code(s): J69.0 - Pneumonitis due to inhalation of food and vomit (4) Bipolar disorder, unspecified Status: Acute Qualifiers: Active/Remission status: remission status unspecified Qualified Code(s): F31.9 - Bipolar disorder, unspecified Category: Medical Code(s): F31.9 - Bipolar disorder, unspecified (5) HTN (hypertension) Status: Chronic Qualifiers: Hypertension type: primary hypertension Qualified Code(s): I10 - Essential (primary) hypertension Category: Medical Code(s): I10 - Essential (primary) hypertension (6) Hyperlipidemia, unspecified Status: Chronic Qualifiers: Hyperlipidemia type: mixed hyperlipidemia Qualified Code(s): E78.2 - Mixed hyperlipidemia Category: Medical Code(s): E78.5 - Hyperlipidemia, unspecified (7) Hypokalemia Status: Acute Category: Medical Code(s): E87.6 - Hypokalemia (8) Ventral hernia with bowel obstr
--- NOTE | 2021-03-21 09:30 | HMH.PNCARD ---
Subjective Date: 03/21/21 Time: 09:30 Principal diagnosis: SBO Interval history: 75 yo WF in bed. States she feels bad/belly hurts since surgery. Denies chest pain. More concerned with being turned in bed to prevent bed sores. Talking about Dr. Ramachandran making rounds but then realized that he doesn't come here. Exam Vital signs and Labs for Last 24 Hours: Temp Pulse Resp BP Pulse Ox 98.4 F 92 H 15 124/61 96 03/21/21 08:00 03/21/21 08:00 03/21/21 08:00 03/21/21 08:00 03/21/21 08:00 Laboratory Results - last 24 hr 03/20/21 05:15: [place] <0.1 L 03/21/21 06:10: WBC 9.0, RBC 4.89, Hgb 14.0, Hct 43.3, MCV 88.7, MCH 28.6, MCHC 32.3, RDW 13.8, Plt Count 352, MPV 9.3, Neut % (Auto) 80.7 H, Lymph % (Auto) 10.2, [place] % (Auto) 8.6, Eos % (Auto) 0.2, Baso % (Auto) 0.2, Neut # (Auto) 7.3, Lymph # (Auto) 0.9, [place] # (Auto) 0.8, Eos # (Auto) 0.0, Baso # (Auto) 0.0 03/21/21 06:10: Sodium 134 L, Potassium 2.8 L*, Chloride 91 L, Carbon Dioxide 35 H, Anion Gap 10.8, BUN 51 H D, Creatinine 1.20 H D, Estimated Creat Clear 57, Estimated GFR 44 L, Est GFR ( Amer) 53 L D, Glucose 104 H, Calcium 7.1 L I & O for Last 24 hours: Intake & Output 03/18/21 03/19/21 03/20/21 03/21/21 11:59 11:59 11:59 11:59 Intake Total 1100 / 1100 2045 / 2046 Output Total 1000 / 1000 2540 / 2540 Balance 100 / 100 -494 / -494 Weight 188 lb 11.451 oz 189 lb - Constitutional no acute distress - *Routine HEENT Exam Head: Present: normocephalic Eye: Present: EOMI, PERRL ENT: Present: mucous membranes moist - *Routine Neck Exam Present: supple. Absent: lymphadenopathy - *Routine Respiratory Exam Present: CTA bilaterally - *Routine Cardiovascular Exam Present: RRR - *Routine Abdominal Exam Present: tenderness - *Routine Extremities Exam Absent: cyanosis, clubbing, edema - *Routine Skin Exam Present: warm. Absent: rash - *Routine Neurological Exam Present: alert, oriented X3 Progress Note: A&P (1) Small bowel obstruction Status: Acute (2) DYLAN (acute kidney injury) Status: Acute (3) Aspiration pneumonia Status: Acute (4) Bipolar disorder, unspecified Status: Acute (5) HTN (hypertension) Status: Chronic (6) Hyperlipidemia, unspecified Status: Chronic (7) Hypokalemia Status: Acute Assessment and Plan for All Diagnoses:: 1. SBO, s/p surgery. NG tube in place. 2. Hypokalemia, replacement ordered. 3. History of HTN, currently controlled. 4. DYLAN, improved with IVF. 5. Pneumonia, on Abx. 6. Bipolar disorder. Clinically stable from cardiac standpoint. Echo report shows EF 55% with no significant valve disease. Nothing further to add. Please call if needed.
--- NOTE | 2021-03-21 11:57 | P.PN_ITS ---
Subjective Patient reports: no bowel movement Narrative: Postoperative pain Progress Note: A&P (1) Small bowel obstruction Status: Acute Assessment and plan: Overall, doing well status post partial small bowel resection and primary hernia repair. Await return of bowel function Continue nasogastric decompression for now (2) DYLAN (acute kidney injury) Status: Acute Assessment and plan: Corey catheter to remain in place for now secondary to need for accurate/strict I's and O's (given recent dehydration) (3) Aspiration pneumonia Status: Acute (4) Bipolar disorder, unspecified Status: Acute (5) HTN (hypertension) Status: Chronic (6) Hyperlipidemia, unspecified Status: Chronic (7) Hypokalemia Status: Acute Assessment and plan: Additional replacement ordered to help limit concomitant hypokalemia-exacerbated ileus. (8) Physical deconditioning Status: Acute Assessment and plan: Physical therapy consult Exam Vital signs and Labs for Last 24 Hours: Temp Pulse Resp BP Pulse Ox 98.4 F 92 H 15 124/61 96 03/21/21 08:00 03/21/21 08:00 03/21/21 08:00 03/21/21 08:00 03/21/21 08:00 Laboratory Results - last 24 hr 03/20/21 05:15: [place] <0.1 L 03/21/21 06:10: WBC 9.0, RBC 4.89, Hgb 14.0, Hct 43.3, MCV 88.7, MCH 28.6, MCHC 32.3, RDW 13.8, Plt Count 352, MPV 9.3, Neut % (Auto) 80.7 H, Lymph % (Auto) 10.2, [place] % (Auto) 8.6, Eos % (Auto) 0.2, Baso % (Auto) 0.2, Neut # (Auto) 7.3, Lymph # (Auto) 0.9, [place] # (Auto) 0.8, Eos # (Auto) 0.0, Baso # (Auto) 0.0 03/21/21 06:10: Sodium 134 L, Potassium 2.8 L*, Chloride 91 L, Carbon Dioxide 35 H, Anion Gap 10.8, BUN 51 H D, Creatinine 1.20 H D, Estimated Creat Clear 57, Estimated GFR 44 L, Est GFR ( Amer) 53 L D, Glucose 104 H, Calcium 7.1 L I & O for Last 24 hours: Intake & Output 03/18/21 03/19/21 03/20/21 03/21/21 11:59 11:59 11:59 11:59 Intake Total 1100 / 1100 6 / 2046 Output Total 1000 / 1000 2540 / 2540 Balance 100 / 100 -494 / -494 Weight 188 lb 11.451 oz 189 lb - Constitutional no acute distress - *Routine Respiratory Exam Absent: respiratory distress - *Routine Cardiovascular Exam Absent: tachycardia - *Routine Abdominal Exam Comments: Dressing dry and in place. No cellulitis.
[2021-03-21 16:00] VITALS: BP 121/52; PULSE 88; RESP 17; TEMP 36.9; O2SAT 93
--- NOTE | 2021-03-21 19:57 | PC.NURSE ---
PT IS RESTING IN BED. RECEIVED PAIN MEDICATION FOR DISCOMFORT. PT HAS BEEN GIVEN ICE CHIPS CAUTIOUSLY. NG TUBE NOTED TO RIGHT NARE CONNECTED TO LOW WALL CONTINUOUS SUCTION. DRESSING TO MIDLINE INCISION C/D/I. TURNED AND REPOSITIONED IN BED. REDNESS NOTED TO BUTTOCKS WITH DRESSING INTACT. VSS. WILL CONTINUE TO MONITOR.
[2021-03-21 20:00] VITALS: BP 113/40; PULSE 85; RESP 24; TEMP 36.9; O2SAT 92; O2SAT 95
[2021-03-22] VITALS: BP 122/42; PULSE 84; RESP 20; TEMP 36.4; O2SAT 95
[2021-03-22 04:00] VITALS: BP 106/48; PULSE 79; RESP 16; TEMP 36.7; O2SAT 92
[2021-03-22 06:37] LABS: Basophils # 0.1 K/mm3 (0-0.2); Basophils % 0.5 % (0.1-2.0); Eosinophils # 0.2 K/mm3 (0.0-0.4); Eosinophils % 2.1 % (0.1-12.0); Hematocrit 41.9 % (37.0-47.0); Hemoglobin 13.1 g/dL (12.2-16.2); Lymphocytes # 0.9 K/mm3 (0.7-4.5); Lymphocytes % 8.3 % (10-50); Mean Corpuscular HGB Conc 31.3 g/dL (31.8-35.4); Mean Corpuscular Hemoglobin 28.3 pg (27.0-31.2); Mean Corpuscular Volume 90.3 fl (81-99); Monocytes # 0.7 K/mm3 (0.1-1.0); Monocytes % 6.4 % (1.7-9.3); Neutrophils # 8.7 K/mm3 (1.8-7.8); Neutrophils % 82.7 % (37.0-80.0); Platelet Count 357 K/mm3 (142-424); Red Blood Count 4.64 M/mm3 (4.20-5.40); Red Cell Distribution Width 14.2 % (11.5-17.5); White Blood Count 10.6 K/mm3 (4.8-10.8)
[2021-03-22 06:49] LABS: Chloride 101 mmol/L (98-107)
[2021-03-22 06:50] LABS: Potassium 3.1 mmoL/L (3.5-5.1); Sodium 140 mmol/L (136-145)
[2021-03-22 06:53] LABS: Anion Gap 9.1 mEq/L (5-15); Blood Urea Nitrogen 28 mg/dl (7-17); Calcium 7.4 mg/dl (8.4-10.2); Carbon Dioxide 33 mmol/L (22.0-30.0); Creatinine Clearance Estimated 68 mL/min (50-200); Estimated Glomerular Filt Rate 82 ml/min (>60); GFR (African American) 99 ML/MIN (>60); Glucose 82 mg/dl (74-100)
[2021-03-22 08:00] VITALS: BP 134/49; PULSE 82; RESP 16; TEMP 36.9; O2SAT 96
--- NOTE | 2021-03-22 09:07 | HMH.GSPN ---
Subjective Narrative: No significant complaints. Moderate NG output. BUN/creatinine significantly improved. Progress Note: A&P (1) Small bowel obstruction Status: Acute (2) DYLAN (acute kidney injury) Status: Acute (3) Aspiration pneumonia Status: Acute (4) Bipolar disorder, unspecified Status: Acute (5) HTN (hypertension) Status: Chronic (6) Hyperlipidemia, unspecified Status: Chronic (7) Hypokalemia Status: Acute (8) Ventral hernia with bowel obstruction Status: Acute (9) Obesity (BMI 30.0-34.9) Status: Acute (10) Essential (primary) hypertension Status: Acute (11) Generalized anxiety disorder Status: Acute Assessment and Plan for All Diagnoses:: DC Corey Exam Vital signs and Labs for Last 24 Hours: Temp Pulse Resp BP Pulse Ox 98.5 F 82 16 134/49 L 96 03/22/21 08:00 03/22/21 08:00 03/22/21 08:00 03/22/21 08:00 03/22/21 08:00 Laboratory Results - last 24 hr 03/22/21 05:50: WBC 10.6, RBC 4.64, Hgb 13.1, Hct 41.9, MCV 90.3, MCH 28.3, MCHC 31.3 L, RDW 14.2, Plt Count 357, MPV 9.0, Neut % (Auto) 82.7 H, Lymph % (Auto) 8.3 L, [place] % (Auto) 6.4, Eos % (Auto) 2.1, Baso % (Auto) 0.5, Neut # (Auto) 8.7 H, Lymph # (Auto) 0.9, [place] # (Auto) 0.7, Eos # (Auto) 0.2, Baso # (Auto) 0.1 03/22/21 05:50: Sodium 140, Potassium 3.1 L, Chloride 101, Carbon Dioxide 33 H, Anion Gap 9.1, BUN 28 H D, Creatinine 0.70 D, Estimated Creat Clear 68, Estimated GFR 82, Est GFR ( Amer) 99 D, Glucose 82 D, Calcium 7.4 L I & O for Last 24 hours: Intake & Output 03/19/21 03/20/21 03/21/21 03/22/21 11:59 11:59 11:59 11:59 Intake Total 1100 / 1100 2046 / 2046 896 / 896 Output Total 1000 / 1000 2540 / 2540 800 / 800 Balance 100 / 100 -494 / -494 96 / 96 Weight 188 lb 11.451 oz 189 lb Microbiology Reports for the Last 24 Hours: Microbiology 03/20/21 07:05 Blood Blood Culture - Preliminary NO GROWTH AFTER 48 HOURS 03/20/21 07:05 Blood Blood Culture - Preliminary NO GROWTH AFTER 48 HOURS - *Routine Abdominal Exam Present: soft Comments: Slightly distended. Dressing intact.
--- NOTE | 2021-03-22 10:52 | HMH.ACPN2 ---
Internal Medicine - PN: Subj *Date: 03/22/21 *Time: 11:28 Interval history: 75-year-old female patient lying in bed resting quietly she does report some pain during the night, instructed to alert nursing staff for pain medication. She also voices request for her breakfast and fluids, again reminded she cannot have anything by mouth due to lack of bowel activity. NG in place to suction explained purpose of NG tube again. Dressing to midline abdomen clean/dry/intact, abdomen is slightly distended. Daughter updated on patient's condition. Exam Vital signs and Labs for Last 24 Hours: Temp Pulse Resp BP Pulse Ox 98.5 F 82 16 134/49 L 96 03/22/21 08:00 03/22/21 08:00 03/22/21 08:00 03/22/21 08:00 03/22/21 08:00 Laboratory Results - last 24 hr 03/22/21 05:50: WBC 10.6, RBC 4.64, Hgb 13.1, Hct 41.9, MCV 90.3, MCH 28.3, MCHC 31.3 L, RDW 14.2, Plt Count 357, MPV 9.0, Neut % (Auto) 82.7 H, Lymph % (Auto) 8.3 L, [place] % (Auto) 6.4, Eos % (Auto) 2.1, Baso % (Auto) 0.5, Neut # (Auto) 8.7 H, Lymph # (Auto) 0.9, [place] # (Auto) 0.7, Eos # (Auto) 0.2, Baso # (Auto) 0.1 03/22/21 05:50: Sodium 140, Potassium 3.1 L, Chloride 101, Carbon Dioxide 33 H, Anion Gap 9.1, BUN 28 H D, Creatinine 0.70 D, Estimated Creat Clear 68, Estimated GFR 82, Est GFR ( Amer) 99 D, Glucose 82 D, Calcium 7.4 L I & O for Last 24 hours: Intake & Output 03/19/21 03/20/21 03/21/21 03/22/21 23:59 23:59 23:59 23:59 Intake Total 1900 / 1900 2142 / 2142 Output Total 1750 / 2390 2140 / 2465 450 / 450 Balance 150 / -490 2 / -323 -450 / -450 Weight 189 lb 9.561 oz 189 lb Microbiology Reports for the Last 24 Hours: Microbiology 03/20/21 07:05 Blood Blood Culture - Preliminary NO GROWTH AFTER 48 HOURS 03/20/21 07:05 Blood Blood Culture - Preliminary NO GROWTH AFTER 48 HOURS - Constitutional no acute distress - *Routine HEENT Exam Head: Present: normocephalic Eye: Present: EOMI ENT: Present: mucous membranes moist - *Routine Neck Exam Present: trachea midline. Absent: tracheal deviation - *Routine Respiratory Exam Present: CTA bilaterally. Absent: accessory muscle use - *Routine Cardiovascular Exam Present: RRR - *Routine Abdominal Exam Present: soft, tenderness, distended. Absent: normoactive bowel sounds, firm - *Routine Extremities Exam Present: full ROM, pulses intact. Absent: cyanosis, clubbing - *Routine Skin Exam Present: dry, warm, wounds. Absent: intact, cyanosis Comments: Mid-line Abd drsg C/D/I - *Routine Neurological Exam Present: alert. Absent: motor deficit - Routine Psychiatric Exam Present: unable to assess Assessment and Plan (1) Small bowel obstruction Status: Acute Category: Medical Code(s): K56.609 - Unspecified intestinal obstruction, unspecified as to partial versus complete obstruction (2) DYLAN (acute kidney injury) Status: Acute Category: Medical Code(s): N17.9 - Acute kidney failure, unspecified (3) Aspiration pneumonia Status: Acute Qualifiers: Aspiration pneumonia type: due to vomit Laterality: right Lung location: lower lobe of lung Qualified Code(s): J69.0 - Pneumonitis due to inhalation of food and vomit Category: Medical Code(s): J69.0 - Pneumonitis due to inhalation of food and vomit (4) Bipolar disorder, unspecified Status: Acute Qualifiers: Active/Remission status: remission status unspecified Qualified Code(s): F31.9 - Bipolar disorder, unspecified Category: Medical Code(s): F31.9 - Bipolar disorder, unspecified (5) HTN (hypertension) Status: Chronic Qualifiers: Hypertension type: primary hypertension Qualified Code(s): I10 - Essential (primary) hypertension Category: Medical Code(s): I10 - Essential (primary) hypertension (6) Hyperlipidemia, unspecified Status: Chronic Qualifiers: Hyperlipidemia type: mixed hyperlipidem
[2021-03-22 11:27] VITALS: BP 129/58; PULSE 78; RESP 16; TEMP 36.9; O2SAT 96
--- NOTE | 2021-03-22 11:30 | HMH.PTEV ---
Physical Therapy Evaluation Rehab PT IP Evaluation Start: 03/21/21 11:55 Freq: ONCE Status: Active Protocol: Document 03/22/21 11:20 JACK (Rec: 03/22/21 11:29 JACK [id number]) Subjective/History History History Patient is a 75 year old female admitted to [facility] from SNF secondary to acute bowel obstruction on 03/20/21. She was experinecing vomiting and constipation for approx 4 days prior to admittance. Patient was willing to cooperate with PT for evaluation today. Able to achieve EOB with mod assist x 2. Subjective Subjective If I get up I'm going to throw up. Rehab PT IP Eval Objective Appearance Patient Behavior Cooperative,Aggressive Patient Orientation Person,Place,Month Difficulty following instructions mild Speech Pattern Rambling Ambulation Patient Able to Ambulate No Balance Ability to Arise Unable Sitting Balance Leans or slides in chair Dynamic Sitting Balance Ability Fair Transfers Bed Transfer Ability Moderate x 2 (50% assist) Pain Abdomen Pain Intensity 8 ROM All Extremities PT ROM Status WFL MMT All Extremities PT MMT ABN Abnormal MMT Grade 3 Rehab PT IP prob,goals,plan Problems Date of Evaluation: 03/22/21 PT IP Problems Bed Mobility,Transfers,Gait, Balance,Self care,Safety Rehab Potential Rehab Potential Fair Plan PT Intervention Plan Bed Mobility,Transfers,Gait, Balance,Self care,Safety, Therapeutic Exercise PT Plan Frequency BID Duration LOS Discharge Goals Bed Transfer Ability Minimal x 2 (25% assist) Sit to Stand Chair Transfer Ability Minimal x 2 (25% assist) Ambulation Assistive Device Rolling Walker Ambulation Distance (feet) 20 Discharge Plan PT Discharge Plan Patient to return to SNF for continued rehab services once deem medically stable. G -code Required No Eval Complexity Eval Charge Codes 58320 - High Complexity PHYSICIAN CERTIFICATION: I certify the specified therapy services for Nicolas Davis are required, authorized, and reviewed every 30 days.
[2021-03-22 16:00] VITALS: BP 108/41; PULSE 78; RESP 14; TEMP 36.5; O2SAT 96
--- NOTE | 2021-03-22 17:12 | DIET.NUTRFU ---
Remains NPO, no bowel activity. Will continue to monitor and slowly advance diet as tolerated.
--- NOTE | 2021-03-22 18:36 | PC.NURSE ---
PT HAS RESTED IN BED THIS SHIFT, NG TO LOW WALL SUCTION. 18 FR 45 AT THE NARE. MID LINE INCISION DSG IN PLACE C/D/I. HAS BEEN MEDICATED WITH PRN MORPHINE PER MAR ONCE WITH GOOD EFFECTIVENESS NOTED. Q2 TURN OR NEEDED. ICE PACKS PER PT REQUEST. DSG TO BUTTOCK NOTED C/D/I.
[2021-03-22 20:00] VITALS: BP 93/49; PULSE 67; RESP 15; TEMP 36.8; O2SAT 96; O2SAT 97
[2021-03-23] VITALS (7 sets, daily range): BP systolic 100–162; BP diastolic 49–65; PULSE 60–77; RESP 14–20; TEMP 36.2–37.1; O2SAT 94–98; BMI 32.3
--- NOTE | 2021-03-23 09:40 | HMH.ACPN ---
Internal Medicine - PN: Subj *Date: 03/23/21 *Time: 09:40 Exam Vital signs and Labs for Last 24 Hours: Temp Pulse Resp BP Pulse Ox 97.5 F L 60 14 124/51 L 98 03/23/21 07:52 03/23/21 07:52 03/23/21 07:52 03/23/21 07:52 03/23/21 07:52 I & O for Last 24 hours: Intake & Output 03/20/21 03/21/21 03/22/21 03/23/21 23:59 23:59 23:59 23:59 Intake Total 1900 / 1900 2142 / 2142 1025 / 1025 Output Total 1750 / 2390 2140 / 2465 1700 / 1700 Balance 150 / -490 2 / -323 -675 / -675 Weight 86 kg 85.729 kg 85.774 kg Microbiology Reports for the Last 24 Hours: Microbiology 03/20/21 07:05 Blood Blood Culture - Preliminary NO GROWTH AFTER 48 HOURS 03/20/21 07:05 Blood Blood Culture - Preliminary NO GROWTH AFTER 48 HOURS Assessment and Plan (1) Small bowel obstruction Status: Acute Category: Medical Code(s): K56.609 - Unspecified intestinal obstruction, unspecified as to partial versus complete obstruction (2) DYLAN (acute kidney injury) Status: Acute Category: Medical Code(s): N17.9 - Acute kidney failure, unspecified (3) Aspiration pneumonia Status: Acute Qualifiers: Aspiration pneumonia type: due to vomit Laterality: right Lung location: lower lobe of lung Qualified Code(s): J69.0 - Pneumonitis due to inhalation of food and vomit Category: Medical Code(s): J69.0 - Pneumonitis due to inhalation of food and vomit (4) Bipolar disorder, unspecified Status: Acute Qualifiers: Active/Remission status: remission status unspecified Qualified Code(s): F31.9 - Bipolar disorder, unspecified Category: Medical Code(s): F31.9 - Bipolar disorder, unspecified (5) HTN (hypertension) Status: Chronic Qualifiers: Hypertension type: primary hypertension Qualified Code(s): I10 - Essential (primary) hypertension Category: Medical Code(s): I10 - Essential (primary) hypertension (6) Hyperlipidemia, unspecified Status: Chronic Qualifiers: Hyperlipidemia type: mixed hyperlipidemia Qualified Code(s): E78.2 - Mixed hyperlipidemia Category: Medical Code(s): E78.5 - Hyperlipidemia, unspecified (7) Hypokalemia Status: Acute Category: Medical Code(s): E87.6 - Hypokalemia (8) Ventral hernia with bowel obstruction Status: Acute Category: Medical Code(s): K43.6 - Other and unspecified ventral hernia with obstruction, without gangrene (9) Obesity (BMI 30.0-34.9) Status: Acute Category: Medical Code(s): E66.9 - Obesity, unspecified (10) Essential (primary) hypertension Status: Acute Category: Medical Code(s): I10 - Essential (primary) hypertension (11) Generalized anxiety disorder Status: Acute Category: Medical Code(s): F41.1 - Generalized anxiety disorder The patient's infection will respond to the chosen ABx?: Yes Is the patient receiving the right drug, dose, and route?: Yes Could a more targeted ABx be ordered?: No
--- NOTE | 2021-03-23 09:53 | HMH.ACPN2 ---
Internal Medicine - PN: Subj *Date: 03/23/21 *Time: 09:53 Interval history: doing better - still with ng tube - Exam Vital signs and Labs for Last 24 Hours: Temp Pulse Resp BP Pulse Ox 97.5 F L 60 14 124/51 L 98 03/23/21 07:52 03/23/21 07:52 03/23/21 07:52 03/23/21 07:52 03/23/21 07:52 I & O for Last 24 hours: Intake & Output 03/20/21 03/21/21 03/22/21 03/23/21 11:59 11:59 11:59 11:59 Intake Total 1100 / 1100 2046 / 2046 896 / 896 1025 / 1025 Output Total 1000 / 1000 2540 / 2540 800 / 800 1250 / 1250 Balance 100 / 100 -494 / -494 96 / 96 -225 / -225 Weight 188 lb 11.451 oz 189 lb 189 lb 1.6 oz Microbiology Reports for the Last 24 Hours: Microbiology 03/20/21 07:05 Blood Blood Culture - Preliminary NO GROWTH AFTER 48 HOURS 03/20/21 07:05 Blood Blood Culture - Preliminary NO GROWTH AFTER 48 HOURS - Constitutional no acute distress, obese - *Routine HEENT Exam Head: Present: normocephalic Eye: Present: EOMI, PERRL ENT: Present: mucous membranes dry, other (ng tube) - *Routine Neck Exam Absent: JVD - *Routine Respiratory Exam Present: CTA bilaterally - *Routine Cardiovascular Exam Present: RRR - *Routine Abdominal Exam Present: soft - *Routine Extremities Exam Absent: calf tenderness - *Routine Skin Exam Present: intact - *Routine Neurological Exam Present: alert, CN II-XII intact - Routine Psychiatric Exam Present: cooperative Assessment and Plan (1) Small bowel obstruction Status: Acute Category: Medical Code(s): K56.609 - Unspecified intestinal obstruction, unspecified as to partial versus complete obstruction (2) DYLAN (acute kidney injury) Status: Acute Category: Medical Code(s): N17.9 - Acute kidney failure, unspecified (3) Aspiration pneumonia Status: Acute Qualifiers: Aspiration pneumonia type: due to vomit Laterality: right Lung location: lower lobe of lung Qualified Code(s): J69.0 - Pneumonitis due to inhalation of food and vomit Category: Medical Code(s): J69.0 - Pneumonitis due to inhalation of food and vomit (4) Bipolar disorder, unspecified Status: Acute Qualifiers: Active/Remission status: remission status unspecified Qualified Code(s): F31.9 - Bipolar disorder, unspecified Category: Medical Code(s): F31.9 - Bipolar disorder, unspecified (5) HTN (hypertension) Status: Chronic Qualifiers: Hypertension type: primary hypertension Qualified Code(s): I10 - Essential (primary) hypertension Category: Medical Code(s): I10 - Essential (primary) hypertension (6) Hyperlipidemia, unspecified Status: Chronic Qualifiers: Hyperlipidemia type: mixed hyperlipidemia Qualified Code(s): E78.2 - Mixed hyperlipidemia Category: Medical Code(s): E78.5 - Hyperlipidemia, unspecified (7) Hypokalemia Status: Acute Category: Medical Code(s): E87.6 - Hypokalemia (8) Ventral hernia with bowel obstruction Status: Acute Category: Medical Code(s): K43.6 - Other and unspecified ventral hernia with obstruction, without gangrene (9) Obesity (BMI 30.0-34.9) Status: Acute Category: Medical Code(s): E66.9 - Obesity, unspecified (10) Essential (primary) hypertension Status: Acute Category: Medical Code(s): I10 - Essential (primary) hypertension (11) Generalized anxiety disorder Status: Acute Category: Medical Code(s): F41.1 - Generalized anxiety disorder
--- NOTE | 2021-03-23 09:57 | HMH.GSPN ---
Subjective Patient reports: no new complaints, bowel movement Progress Note: A&P (1) Small bowel obstruction Status: Acute Assessment and plan: Overall, doing well status post mini laparotomy with partial small bowel resection Bowel function returning; therefore, will remove nasogastric tube Clear liquids directed by nursing (2) DYLAN (acute kidney injury) Status: Acute (3) Aspiration pneumonia Status: Acute (4) Bipolar disorder, unspecified Status: Acute (5) HTN (hypertension) Status: Chronic (6) Hyperlipidemia, unspecified Status: Chronic (7) Hypokalemia Status: Acute (8) Ventral hernia with bowel obstruction Status: Acute (9) Obesity (BMI 30.0-34.9) Status: Acute (10) Essential (primary) hypertension Status: Acute (11) Generalized anxiety disorder Status: Acute (12) Physical deconditioning Status: Acute Assessment and plan: Continue physical therapy/mobilization Exam Vital signs and Labs for Last 24 Hours: Temp Pulse Resp BP Pulse Ox 97.5 F L 60 14 124/51 L 98 03/23/21 07:52 03/23/21 07:52 03/23/21 07:52 03/23/21 07:52 03/23/21 07:52 I & O for Last 24 hours: Intake & Output 03/20/21 03/21/21 03/22/21 03/23/21 11:59 11:59 11:59 11:59 Intake Total 1100 / 1100 2046 / 2046 896 / 896 1025 / 1025 Output Total 1000 / 1000 2540 / 2540 800 / 800 1250 / 1250 Balance 100 / 100 -494 / -494 96 / 96 -225 / -225 Weight 188 lb 11.451 oz 189 lb 189 lb 1.6 oz Microbiology Reports for the Last 24 Hours: Microbiology 03/20/21 07:05 Blood Blood Culture - Preliminary NO GROWTH AFTER 48 HOURS 03/20/21 07:05 Blood Blood Culture - Preliminary NO GROWTH AFTER 48 HOURS - Constitutional no acute distress - *Routine Respiratory Exam Absent: respiratory distress - *Routine Cardiovascular Exam Absent: tachycardia - *Routine Abdominal Exam Present: soft Comments: Incision clean, dry, and intact. No erythema.
--- NOTE | 2021-03-23 10:21 | PC.NURSE ---
V/O TO D/C NG TUBE PER DR BUENROSTRO. PT TOLERATED PROCEDURE WELL. DR BUENROSTRO ALSO STATED IT WAS OKAY FOR PT TO HAVE SIPS AND CHIPS PER NURSING BUT DID NOT WANT HER TO HAVE A FULL TRAY YET.
--- NOTE | 2021-03-23 12:18 | PC.NURSE ---
Brought patient ice water and educated patient on diet (confirmed diet with nurse). Patient threw ice water at nurse.
--- NOTE | 2021-03-23 16:39 | PC.NURSE ---
PT HAS BEEN RESISTIVE TO CARE AND COMBATIVE WITH STAFF AT TIMES THIS SHIFT. SHE IS ABLE TO USE CALL LIGHT TO MAKE NEEDS KNOWN TO STAFF, SHE HAS BEEN PROVIDED WITH ICE CHIPS TOLERATED THIS SHIFT, NO N/V/D THUS FAR. NG TUBE WAS REMOVED THIS AM AND SHE TOLERATED PROCEDURE WELL. 2 BM'S NOTED THIS SHIFT. 4 EPISODES OF URINARY INCONTINENCE. SHE HAS REQUESTED PAIN MEDICATION ONCE THIS SHIFT AND WAS MEDICATED WITH PRN MORPHINE PER MAR WITH GOOD EFFECTIVENESS. SHE STATES THAT SHE DOES NOT WALK AT HOME BUT USES ROLLATOR WALKER AND SITS ON IT OR HER WHEELCHAIR. SHE HAS BEEN ASSISTED TO TURN NEEDED. DSG TO COCCYX CHANGED THIS SHIFT, NO BREAKDOWN NOTED. VITAL SIGNS HAVE REMAINED STABLE.
[2021-03-24] VITALS: BP 102/45; PULSE 74; RESP 20; TEMP 36.6; O2SAT 95
--- NOTE | 2021-03-24 03:18 | PC.NURSE ---
A&OX4. HOWEVER, PT DOES MUMBLE TO HERSELF AT TIMES. PT HAS BEEN PLEASANT THIS SHIFT. RESTING INTERMITTENTLY. HAS REMAINED IN BED T/O SHIFT. PT HAS C/O PAIN TO ABD X2, TX PER AUG. INCISION PRESENT TO ABD, ARLET CDI. PT HAS SLEPT MAJORITY OF SHIFT. TOLERATING 2LNC WELL. REMAINS INCONTINENT, BRIEF IN PLACE. VSS WILL CONTINUE TO MONITOR.
[2021-03-24 04:00] VITALS: BP 100/44; PULSE 52; RESP 20; TEMP 36.8; O2SAT 92
--- NOTE | 2021-03-24 04:08 | PC.NURSE ---
PT HAS BECOME MORE AGITATED THIS MORNING. PT REQUESTS THAT SHE HAVE HER LITHIUM REORDERED. PT STATES THAT SHE TAKES THIS EVERY DAY. WILL PASS THIS ALONG TO DAY SHIFT.
[2021-03-24 05:00] VITALS: BMI 32.5
[2021-03-24 08:00] VITALS: BP 133/60; PULSE 59; RESP 18; TEMP 36.4; O2SAT 92
--- NOTE | 2021-03-24 09:26 | HMH.GSPN ---
Subjective Narrative: She is more talkative today and states that she feels okay . She continues to have evidence of bowel function. She has requested some stacia hanny to settle the stomach . She has had no emesis (NG removed yesterday). Progress Note: A&P (1) Small bowel obstruction Status: Acute Assessment and plan: Overall, doing well status post mini laparotomy with partial small bowel resection. Slowly advance diet (2) DYLAN (acute kidney injury) Status: Acute (3) Aspiration pneumonia Status: Acute (4) Bipolar disorder, unspecified Status: Acute (5) HTN (hypertension) Status: Chronic (6) Hyperlipidemia, unspecified Status: Chronic (7) Hypokalemia Status: Acute (8) Ventral hernia with bowel obstruction Status: Acute (9) Obesity (BMI 30.0-34.9) Status: Acute (10) Essential (primary) hypertension Status: Acute (11) Generalized anxiety disorder Status: Acute (12) Physical deconditioning Status: Acute Assessment and plan: Continue physical therapy Exam Vital signs and Labs for Last 24 Hours: Temp Pulse Resp BP Pulse Ox 98.2 F 52 L 20 100/44 L 92 L 03/24/21 04:00 03/24/21 04:00 03/24/21 04:00 03/24/21 04:00 03/24/21 04:00 I & O for Last 24 hours: Intake & Output 03/21/21 03/22/21 03/23/21 03/24/21 11:59 11:59 11:59 11:59 Intake Total 2046 / 2046 896 / 896 1025 / 1025 Output Total 2540 / 2540 800 / 800 1250 / 1250 Balance -494 / -494 96 / 96 -225 / -225 Weight 189 lb 189 lb 1.6 oz 190 lb 11.198 oz - Constitutional no acute distress - *Routine Respiratory Exam Absent: respiratory distress - *Routine Cardiovascular Exam Absent: tachycardia - *Routine Abdominal Exam Present: soft Comments: Incision clean, dry, and intact. No erythema.
[2021-03-24 11:50] VITALS: BP 135/65; PULSE 60; RESP 20; TEMP 36.6; O2SAT 93
--- NOTE | 2021-03-24 13:06 | HMH.ACPN2 ---
Internal Medicine - PN: Subj *Date: 03/24/21 *Time: 13:06 Interval history: Patient appears to be doing well. The NG tube is out. She has more vigorous bowel sounds, and is passing flatus. He is alert oriented responsive her daughter is in the room with her during my visit today. We will restart her home psychiatric medications. Her abdomen is soft, line wound is healing well without signs of infection Exam Vital signs and Labs for Last 24 Hours: Temp Pulse Resp BP Pulse Ox 97.8 F 60 20 135/65 93 L 03/24/21 11:50 03/24/21 11:50 03/24/21 11:50 03/24/21 11:50 03/24/21 11:50 I & O for Last 24 hours: Intake & Output 03/21/21 03/22/21 03/23/21 03/24/21 23:59 23:59 23:59 23:59 Intake Total 2142 / 2142 1025 / 1025 Output Total 2140 / 2465 1700 / 1700 Balance 2 / -323 -675 / -675 Weight 189 lb 189 lb 1.6 oz 190 lb 11.198 oz - Constitutional no acute distress - *Routine HEENT Exam Head: Present: normocephalic Eye: Present: EOMI, PERRL ENT: Present: mucous membranes moist - *Routine Neck Exam Present: supple. Absent: lymphadenopathy - *Routine Respiratory Exam Present: CTA bilaterally - *Routine Cardiovascular Exam Present: RRR - *Routine Abdominal Exam Present: soft, surgical scars. Absent: mass - *Routine Extremities Exam Absent: cyanosis, clubbing, edema - *Routine Skin Exam Present: warm. Absent: rash - *Routine Neurological Exam Present: alert, oriented X3 Assessment and Plan (1) Small bowel obstruction Status: Acute Category: Medical Code(s): K56.609 - Unspecified intestinal obstruction, unspecified as to partial versus complete obstruction (2) DYLAN (acute kidney injury) Status: Acute Category: Medical Code(s): N17.9 - Acute kidney failure, unspecified (3) Aspiration pneumonia Status: Acute Qualifiers: Aspiration pneumonia type: due to vomit Laterality: right Lung location: lower lobe of lung Qualified Code(s): J69.0 - Pneumonitis due to inhalation of food and vomit Category: Medical Code(s): J69.0 - Pneumonitis due to inhalation of food and vomit (4) Bipolar disorder, unspecified Status: Acute Qualifiers: Active/Remission status: remission status unspecified Qualified Code(s): F31.9 - Bipolar disorder, unspecified Category: Medical Code(s): F31.9 - Bipolar disorder, unspecified (5) HTN (hypertension) Status: Chronic Qualifiers: Hypertension type: primary hypertension Qualified Code(s): I10 - Essential (primary) hypertension Category: Medical Code(s): I10 - Essential (primary) hypertension (6) Hyperlipidemia, unspecified Status: Chronic Qualifiers: Hyperlipidemia type: mixed hyperlipidemia Qualified Code(s): E78.2 - Mixed hyperlipidemia Category: Medical Code(s): E78.5 - Hyperlipidemia, unspecified (7) Hypokalemia Status: Acute Category: Medical Code(s): E87.6 - Hypokalemia (8) Ventral hernia with bowel obstruction Status: Acute Category: Medical Code(s): K43.6 - Other and unspecified ventral hernia with obstruction, without gangrene (9) Obesity (BMI 30.0-34.9) Status: Acute Category: Medical Code(s): E66.9 - Obesity, unspecified (10) Essential (primary) hypertension Status: Acute Category: Medical Code(s): I10 - Essential (primary) hypertension (11) Generalized anxiety disorder Status: Acute Category: Medical Code(s): F41.1 - Generalized anxiety disorder (12) Physical deconditioning Status: Acute Category: Medical Code(s): R53.81 - Other malaise
[2021-03-24 16:00] VITALS: BP 125/75; PULSE 62; RESP 20; TEMP 36.8; O2SAT 91
--- NOTE | 2021-03-24 19:58 | PC.NURSE ---
Did speak with Dr. Troy in RE to ordering home meds. No acute changes. VSS. Pt did have x 2 bm's this shift. Has been up to chair.
[2021-03-24 20:00] VITALS: BP 134/53; PULSE 74; RESP 16; TEMP 37.5; O2SAT 94
--- NOTE | 2021-03-24 20:04 | PC.NURSE ---
Attempted to get labs several times this shift and pt refused.
--- NOTE | 2021-03-24 20:39 | PC.NURSE ---
During assessment and medpass patient's IV was out. Attempted to give patient her evening meds and she refused them all stating the pink capsule was a sulfa drug and she was allergic to it. Explained to patient that the pink capsule was her [place] and she states I refuse all my meds. Patient requested pain medication, Morphine, advised patient will need to place new IV for her Morphine and antibiotics she said ok. Attempted x 2 to get new IV in place and patient refused any further attempts - unable to administer IV antibiotics and pain medication. Advised patient I would call physician to see if could get oral antibiotics & oral pain medication patient refused and states don't call I refuse to take any by mouth because it will just come up. Explained the importance of continuing antibiotic therapy for infections and patient states it will be alright they will take care of themselves.
[2021-03-25] VITALS: BP 127/53; PULSE 63; RESP 19; TEMP 36.8; O2SAT 93
[2021-03-25 04:00] VITALS: BP 130/60; PULSE 69; RESP 17; TEMP 36.6; O2SAT 95
[2021-03-25 04:55] VITALS: BMI 33.4
[2021-03-25 06:13] LABS: Basophils # 0.1 K/mm3 (0-0.2); Basophils % 0.9 % (0.1-2.0); Eosinophils # 0.3 K/mm3 (0.0-0.4); Hematocrit 37.2 % (37.0-47.0); Hemoglobin 11.8 g/dL (12.2-16.2); Lymphocytes # 1.8 K/mm3 (0.7-4.5); Lymphocytes % 13.9 % (10-50); Mean Corpuscular HGB Conc 31.8 g/dL (31.8-35.4); Mean Corpuscular Volume 88.1 fl (81-99); Mean Platelet Volume 8.7 fl (7.4-10.4); Monocytes # 0.8 K/mm3 (0.1-1.0); Neutrophils # 9.7 K/mm3 (1.8-7.8); Neutrophils % 77.1 % (37.0-80.0); Platelet Count 318 K/mm3 (142-424); Red Blood Count 4.22 M/mm3 (4.20-5.40); Red Cell Distribution Width 13.3 % (11.5-17.5); White Blood Count 12.6 K/mm3 (4.8-10.8)
--- NOTE | 2021-03-25 06:58 | HMH.GSPN ---
Subjective Patient reports: bowel movement Narrative: She feels about the same . She does complain of kidney pain . Progress Note: A&P (1) Small bowel obstruction Status: Acute Assessment and plan: Overall, doing well postoperative day 5 status post mini laparotomy with partial small bowel resection Continue to slowly increase diet (soft diet ordered) (2) DYLAN (acute kidney injury) Status: Acute (3) Aspiration pneumonia Status: Acute (4) Bipolar disorder, unspecified Status: Acute (5) HTN (hypertension) Status: Chronic (6) Hyperlipidemia, unspecified Status: Chronic (7) Hypokalemia Status: Acute (8) Ventral hernia with bowel obstruction Status: Acute (9) Obesity (BMI 30.0-34.9) Status: Acute (10) Essential (primary) hypertension Status: Acute (11) Generalized anxiety disorder Status: Acute (12) Physical deconditioning Status: Acute Assessment and plan: Continue physical therapy Exam Vital signs and Labs for Last 24 Hours: Temp Pulse Resp BP Pulse Ox 98 F 69 17 130/60 95 03/25/21 04:00 03/25/21 04:00 03/25/21 04:00 03/25/21 04:00 03/25/21 04:00 Laboratory Results - last 24 hr 03/25/21 05:29: WBC 12.6 H, RBC 4.22, Hgb 11.8 L, Hct 37.2, MCV 88.1, MCH 28.0, MCHC 31.8, RDW 13.3, Plt Count 318, MPV 8.7, Neut % (Auto) 77.1, Lymph % (Auto) 13.9, [place] % (Auto) 6.0, Eos % (Auto) 2.0, Baso % (Auto) 0.9, Neut # (Auto) 9.7 H, Lymph # (Auto) 1.8, [place] # (Auto) 0.8, Eos # (Auto) 0.3, Baso # (Auto) 0.1 I & O for Last 24 hours: Intake & Output 03/22/21 03/23/21 03/24/21 03/25/21 11:59 11:59 11:59 11:59 Intake Total 896 / 896 1025 / 1025 1440 / 1440 Output Total 800 / 800 1250 / 1250 Balance 96 / 96 -225 / -225 1440 / 1440 Weight 189 lb 1.6 oz 190 lb 11.198 oz 196 lb - Constitutional no acute distress - *Routine Respiratory Exam Absent: respiratory distress - *Routine Cardiovascular Exam Absent: tachycardia - *Routine Abdominal Exam Present: soft Comments: Incision clean, dry, and intact. No erythema.
[2021-03-25 07:11] LABS: Blood Urea Nitrogen 14 mg/dl (7-17); Calcium 7.4 mg/dl (8.4-10.2); Creatinine Clearance Estimated 70 mL/min (50-200); Estimated Glomerular Filt Rate 121 ml/min (>60); GFR (African American) 146 ML/MIN (>60)
[2021-03-25 07:49] LABS: Anion Gap 5.7 mEq/L (5-15); Carbon Dioxide 26 mmol/L (22.0-30.0); Chloride 106 mmol/L (98-107); Glucose 108 mg/dl (74-100); Sodium 135 mmol/L (136-145)
[2021-03-25 08:00] VITALS: BP 138/58; PULSE 91; RESP 18; TEMP 36.9; O2SAT 90
[2021-03-25 09:25] LABS: Potassium 2.7 mmoL/L (3.5-5.1)
[2021-03-25 10:05] LABS: Coronavirus 19, PCR Not Detected (NotDetected); Influenza A, PCR Not Detected (NotDetected); Influenza B, PCR Not Detected (NotDetected)
[2021-03-25 12:00] VITALS: BP 115/51; PULSE 71; RESP 20; TEMP 37; O2SAT 92
--- NOTE | 2021-03-25 12:41 | PC.NURSE ---
PT IS RESTING IN BED. NO COMPLAINTS OF DISCOMFORT. TOLERATING SOFT DIET. PT HAS BEEN ALERT AND ORIENTED X3 HOWEVER HAS BEEN VERY UNCOOPERATIVE THIS SHIFT. ON MORNING ASSESSMENT PT REFUSED ALL OF HER MORNING MEDICATIONS AND STATED SHE WOULD NOT LET ME REMOVE HALF OF HER ARLET FROM HER ABDOMINAL INCISION. PT LATER CALLED OUT AND STATED FOR HER ARLET TO BE REMOVED. WHILE REMOVING STABLES THIS NURSE ADDRESSED THE MEDICATIONS AGAIN WITH PT AND PT WAS EDUCATED ON WHAT ALL HER MEDICATIONS WAS FOR BUT THE ONLY MED SHE WAS AGREEABLE TO TAKE WAS THE POTASSIUM. PT STATED SHE WOULD NOT TAKE THE ANTIBIOTICS B/C SHE DID NOT WANT YEAST AND ALL THE OTHER MEDS SHE JUST DID NOT WANT TO TAKE B/C SHE DID NOT NEED THEM.
--- NOTE | 2021-03-25 13:10 | HMH.DCSUM ---
General - General Admission date:: 03/20/21 Discharge date: 03/25/21 HPI HPI: this patient was sent from [facility] to [facility] ed with abdswelling and vomiting with hx of dec po intake -pt was seen in the ed with acute sbo - possible incarcerated ventral hernia and flores and was admitted Hospital Course Hospital Course: Laboratory Tests 03/20/21 03/20/21 03/20/21 04:00 04:00 04:00 WBC 11.8 H RBC 6.23 H Hgb 17.8 H Hct 53.5 H MCV 85.9 MCH 28.5 MCHC 33.2 RDW 13.3 Plt Count 439 H MPV 9.4 Neut % (Auto) 80.0 Lymph % (Auto) 10.9 [place] % (Auto) 7.9 Eos % (Auto) 0.5 Baso % (Auto) 0.8 Neut # (Auto) 9.4 H Lymph # (Auto) 1.3 [place] # (Auto) 0.9 Eos # (Auto) 0.1 Baso # (Auto) 0.1 ESR 1 Sodium 126 L Potassium 3.4 L Chloride 75 L Carbon Dioxide 39 H Anion Gap 15.4 H BUN 77 H Creatinine 2.00 H Estimated Creat Clear 30 Estimated GFR 24 L Est GFR ( Amer) 30 L Glucose 156 H Lactate Calcium 8.5 Total Bilirubin 0.7 AST 21 ALT 23 Alkaline Phosphatase 78 C-Reactive Protein 241.4 H Total Protein 7.4 Albumin 3.9 Globulin 3.5 H Albumin/Globulin Ratio 1.1 Amylase 45 Lipase 11 L Procalcitonin 1.19 Urine Color Urine Appearance Urine pH Ur Specific [place] Urine Protein Urine Glucose (UA) Urine Ketones Urine Blood Urine Nitrate Urine Bilirubin Urine Urobilinogen Ur Leukocyte Esterase Urine RBC Ur Squamous Epith Cells Amorphous Sediment [place] SARS-CoV-2 (PCR) Influenza A Untype (PCR) Influenza Type B (PCR) 03/20/21 03/20/21 03/20/21 05:15 06:40 06:40 WBC RBC Hgb Hct MCV MCH MCHC RDW Plt Count MPV Neut % (Auto) Lymph % (Auto) [place] % (Auto) Eos % (Auto) Baso % (Auto) Neut # (Auto) Lymph # (Auto) [place] # (Auto) Eos # (Auto) Baso # (Auto) ESR Sodium Potassium Chloride Carbon Dioxide Anion Gap BUN Creatinine Estimated Creat Clear Estimated GFR Est GFR ( Amer) Glucose Lactate 1.4 Calcium Total Bilirubin AST ALT Alkaline Phosphatase C-Reactive Protein Total Protein Albumin Globulin Albumin/Globulin Ratio Amylase Lipase Procalcitonin Urine Color Urine Appearance Urine pH Ur Specific [place] Urine Protein Urine Glucose (UA) Urine Ketones Urine Blood Urine Nitrate Urine Bilirubin Urine Urobilinogen Ur Leukocyte Esterase Urine RBC Ur Squamous Epith Cells Amorphous Sediment [place] <0.1 L SARS-CoV-2 (PCR) Not detected Influenza A Untype (PCR) Not detected Influenza Type B (PCR) Not detected 03/20/21 03/21/21 03/21/21 08:13 06:10 06:10 WBC 9.0 RBC 4.89 Hgb 14.0 Hct 43.3 MCV 88.7 MCH 28.6 MCHC 32.3 RDW 13.8 Plt Count 352 MPV 9.3 Neut % (Auto) 80.7 H Lymph % (Auto) 10.2 [place] % (Auto) 8.6 Eos % (Auto) 0.2 Baso % (Auto) 0.2 Neut # (Auto) 7.3 Lymph # (Auto) 0.9 [place] # (Auto) 0.8 Eos # (Auto) 0.0 Baso # (Auto) 0.0 ESR Sodium 134 L Potassium 2.8 L* Chloride 91 L Carbon Dioxide 35 H Anion Gap 10.8 BUN 51 H D Creatinine 1.20 H D Estimated Creat Clear 57 Estimated GFR 44 L Est GFR ( Amer) 53 L D Glucose 104 H Lactate Calcium 7.1 L Total Bilirubin AST ALT Alkaline Phosphatase C-Reactive Protein Total Protein Albumin Globulin Albumin/Globulin Ratio Amylase Lipase Procalcitonin Urine Color Yellow Urine Appearance Clear Urine pH 5.5 Ur Specific [place] >= 1.030 Urine Protein Negative Urine Glucose (UA) Negative Urine Ketones Trace Urine Blood Negative Urine Nitrate Negative Urine Bilirubin 1+ A
[2021-03-25 16:00] VITALS: BP 122/80; PULSE 114; RESP 22; TEMP 36.6; O2SAT 92
[2021-03-25 20:00] VITALS: BP 121/56; PULSE 79; RESP 20; TEMP 37; O2SAT 93
== END 2021-03-25 23:15 | DRG 329 ==
LOC: ER 06:26 → 2ND 07:42
PROVIDERS: Nurse Practitioner Family; Surgery; Admitting Provider Emergency Medicine; Emergency Provider Emergency Medicine; PCP Emergency Medicine; Visit Provider Emergency Medicine
PROC: 0WQF0ZZ Repair Abdominal Wall, Open Approach (ICD-10-PCS; CPT 44120; principal; 2021-03-20 11:00)
DX: K43.6 Other and unspecified ventral hernia with obstruction, without gangrene (principal); J69.0 Pneumonitis due to inhalation of food and vomit; N17.9 Acute kidney failure, unspecified; I10 Essential (primary) hypertension; J44.9 Chronic obstructive pulmonary disease, unspecified; Z20.822 Contact with and (suspected) exposure to COVID-19; Z79.899 Other long term (current) drug therapy; F03.90 Unspecified dementia, unspecified severity, without behavioral disturbance, psychotic disturbance, mood disturbance, and anxiety; F31.9 Bipolar disorder, unspecified; E78.5 Hyperlipidemia, unspecified; G40.909 Epilepsy, unspecified, not intractable, without status epilepticus; Z87.891 Personal history of nicotine dependence; M19.90 Unspecified osteoarthritis, unspecified site; I73.9 Peripheral vascular disease, unspecified; I25.10 Atherosclerotic heart disease of native coronary artery without angina pectoris; E87.6 Hypokalemia; E66.9 Obesity, unspecified; Z68.33 Body mass index [BMI] 33.0-33.9, adult; F41.1 Generalized anxiety disorder
CPT/HCPCS: 49561; 44120; 71045; 74176; 80048; 80053; 80178; 81001; 82150; 83605; 83690; 84145; 85025; 85651; 86140; 87040; 88302; 88307; 93005; 93306; 94760; 94761; 96365; 96367; 96375; 97163; 97530; 99285; C9803; J0330; J2405; J2543; U0003; U0005

== ENCOUNTER → 2021-03-30 07:24 | Outpatient (CLI) | payer MEDICARE, MEDICAID, SELFPAY ==
[2021-03-30 07:49] LABS: Chloride 108 mmol/L (98-107); Potassium 3.5 mmoL/L (3.5-5.1); Sodium 141 mmol/L (136-145)
[2021-03-30 07:52] LABS: Alanine Aminotransferase 15 U/L (12-78); Albumin Level 2.4 g/dl (3.5-5.0); Albumin/Globulin Ratio 0.9 (1.1-1.8); Alkaline Phosphatase 78 U/L (38-126); Anion Gap 9.5 mEq/L (5-15); Aspartate Amino Transferase 19 U/L (14-36); Bilirubin,Total 0.2 mg/dl (0.2-1.3); Blood Urea Nitrogen 8 mg/dl (7-17); Carbon Dioxide 27 mmol/L (22.0-30.0); Estimated Glomerular Filt Rate 156 ml/min (>60); GFR (African American) 189 ML/MIN (>60); Globulin 2.8 g/dL (1.3-3.2); Glucose 89 mg/dl (74-100); Total Protein,Serum 5.2 g/dl (6.3-8.2)
[2021-03-30 08:15] LABS: Basophils # 0.1 K/mm3 (0-0.2); Basophils % 0.6 % (0.1-2.0); Eosinophils # 0.2 K/mm3 (0.0-0.4); Eosinophils % 1.8 % (0.1-12.0); Hematocrit 36.3 % (37.0-47.0); Hemoglobin 11.4 g/dL (12.2-16.2); Lymphocytes # 1.4 K/mm3 (0.7-4.5); Lymphocytes % 12.4 % (10-50); Mean Corpuscular HGB Conc 31.5 g/dL (31.8-35.4); Mean Corpuscular Hemoglobin 27.7 pg (27.0-31.2); Mean Corpuscular Volume 88.1 fl (81-99); Mean Platelet Volume 8.9 fl (7.4-10.4); Monocytes # 0.5 K/mm3 (0.1-1.0); Monocytes % 4.2 % (1.7-9.3); Neutrophils # 8.8 K/mm3 (1.8-7.8); Platelet Count 300 K/mm3 (142-424); Red Blood Count 4.11 M/mm3 (4.20-5.40); Red Cell Distribution Width 13.6 % (11.5-17.5); White Blood Count 10.8 K/mm3 (4.8-10.8)
== END ==
PROVIDERS: Visit Provider Emergency Medicine
DX: I10 Essential (primary) hypertension (principal)
CPT/HCPCS: 80053; 85025

== ENCOUNTER → 2021-04-04 13:14 | Outpatient (CLI) | payer MEDICARE, MEDICAID, SELFPAY | PROVIDERS: Visit Provider Emergency Medicine | DX: S31.109D Unspecified open wound of abdominal wall, unspecified quadrant without penetration into peritoneal cavity, subsequent encounter (principal) | CPT/HCPCS: 87070; 87077; 87186; 87205 ==

== ENCOUNTER → 2021-05-14 13:30 | Outpatient (CLI) | payer MEDICARE, MEDICAID, SELFPAY ==
[2021-05-16 06:53] LABS: Microscopic, Urine URINE MICROSCOPIC (MICROSCOPIC)
[2021-05-16 16:00] LABS: Appearance,Urine CLEAR (Clear); Bilirubin,Urine Negative (Negative); Blood, Urine Negative (Negative); Color,Urine YELLOW (Yellow); Glucose,Urine (UA) Negative (Negative); Ketones,Urine Negative (Negative); Leukocyte Esterase,Urine Negative (Negative); Nitrate,Urine Negative (Negative); Protein,Urine Negative (Negative); Specific Gravity, Urine 1.025 (1.005-1.030); Urobilinogen,Urine 0.2 EU/dl (0.2)
[2021-05-16 16:24] LABS: Bacteria,Urine Trace /lpf; RBC,Urine Occasional #/hpf (0-3); Squamous Epithelial Cell,Urine Occasional #/hpf (0-5)
== END ==
PROVIDERS: Visit Provider Emergency Medicine
DX: R41.0 Disorientation, unspecified (principal)
CPT/HCPCS: 81001

== ENCOUNTER 2021-05-20 17:08 | Emergency (ER) | payer MEDICARE, MEDICAID, SELFPAY ==
[2021-05-20 17:08] VITALS: BP 168/57; PULSE 108; RESP 18; TEMP 36.9; O2SAT 98; BMI 38.9
--- NOTE | 2021-05-20 17:29 | XR_ITS ---
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 Views: 1 view. COMPARISON: CR XR CHEST PORTABLE 03/21/2021 9:53 AM FINDINGS: Lungs: Minimal bibasilar atelectasis. No consolidation. Pleural spaces: Unremarkable. No pleural effusion. No pneumothorax. Heart/Mediastinum: Unremarkable. No cardiomegaly. Vasculature: Elongation of the thoracic aorta with calcification. Bones/joints: Osteopenia. IMPRESSION: No acute cardiopulmonary process.
--- NOTE | 2021-05-20 17:29 | CT_ITS ---
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 ; Additional info: AMS TECHNIQUE: Imaging protocol: Computed tomography of the head without contrast. Radiation optimization: All CT scans at this facility use at least one of these dose optimization techniques: automated exposure control; mA and/or kV adjustment per patient size (includes targeted exams where dose is matched to clinical indication); or iterative reconstruction. COMPARISON: No relevant prior studies available. FINDINGS: Limitations: Patient motion. Brain: Age-related volume loss. Decreased attenuation of the supratentorial white matter is likely secondary to chronic microvascular ischemia. No gross acute intracranial hemorrhage. No midline shift or significant intracranial mass effect. Cerebral ventricles: No hydrocephalus. Paranasal sinuses: Visualized sinuses are unremarkable. No fluid levels. Mastoid air cells: Visualized mastoid air cells are well aerated. Bones/joints: No definite acute calvarial fracture. Soft tissues: Unremarkable. IMPRESSION: 1. Examination is significantly motion limited. 2. No gross acute intracranial abnormality to the degree visualized. Repeat may be considered when patient is better able to tolerate imaging.
[2021-05-20 17:31] VITALS: BP 105/50; PULSE 96; RESP 18; O2SAT 98
[2021-05-20 18:04] VITALS: BP 110/50; PULSE 94; RESP 18; O2SAT 96
[2021-05-20 18:09] LABS: Microscopic, Urine URINE MICROSCOPIC (MICROSCOPIC)
[2021-05-20 18:12] LABS: Appearance,Urine SL CLOUDY (Clear); Bilirubin,Urine Negative (Negative); Blood, Urine 1+ (Negative); Color,Urine YELLOW (Yellow); Glucose,Urine (UA) Negative (Negative); Ketones,Urine Negative (Negative); Leukocyte Esterase,Urine Negative (Negative); Nitrate,Urine Negative (Negative); Protein,Urine Negative (Negative); Urobilinogen,Urine 0.2 EU/dl (0.2)
[2021-05-20 18:25] LABS: Basophils # 0.1 K/mm3 (0-0.2); Eosinophils # 0.1 K/mm3 (0.0-0.4); Eosinophils % 1.2 % (0.1-12.0); Hematocrit 41.4 % (37.0-47.0); Hemoglobin 12.9 g/dL (12.2-16.2); Lymphocytes # 1.2 K/mm3 (0.7-4.5); Lymphocytes % 13.4 % (10-50); Mean Corpuscular HGB Conc 31.2 g/dL (31.8-35.4); Mean Corpuscular Volume 86.3 fl (81-99); Mean Platelet Volume 8.5 fl (7.4-10.4); Monocytes # 0.5 K/mm3 (0.1-1.0); Monocytes % 5.8 % (1.7-9.3); Neutrophils % 78.6 % (37.0-80.0); Platelet Count 254 K/mm3 (142-424); Red Cell Distribution Width 14.8 % (11.5-17.5); White Blood Count 8.9 K/mm3 (4.8-10.8)
[2021-05-20 18:34] LABS: Lactic Acid 1.9 mmol/L (0.7-2.1)
[2021-05-20 18:39] LABS: Bacteria,Urine 1+ /lpf
--- NOTE | 2021-05-20 18:39 | PC.NURSE ---
JUST SPOKE WITH DAUGHTER AND DISCUSSED TRANSFER TO [facility] WHERE DAUGHTER WOULD LIKE HER TO GO. DAUGHTER STATES PT HAS BEEN REFUSING HER PSYCH MEDS FOR APPROX 5 MONTHS PSYCHIATRIST AT THE CARE HOME GAVE HER ABILIFY IM 2.5 WEEKS WITH NO CHANGE
[2021-05-20 18:55] LABS: Chloride 104 mmol/L (98-107)
[2021-05-20 18:56] LABS: Potassium 4.6 mmoL/L (3.5-5.1); Sodium 142 mmol/L (136-145)
[2021-05-20 18:58] LABS: Alanine Aminotransferase 17 U/L (12-78); Albumin Level 4.4 g/dl (3.5-5.0); Alkaline Phosphatase 81 U/L (38-126); Anion Gap 14.6 mEq/L (5-15); Aspartate Amino Transferase 28 U/L (14-36); Bilirubin,Total 0.4 mg/dl (0.2-1.3); Blood Urea Nitrogen 14 mg/dl (7-17); Carbon Dioxide 28 mmol/L (22.0-30.0); Creatinine Clearance Estimated 78 mL/min (50-200); Estimated Glomerular Filt Rate 70 ml/min (>60); GFR (African American) 85 ML/MIN (>60); Total Protein,Serum 7.5 g/dl (6.3-8.2)
[2021-05-20 18:59] LABS: Albumin/Globulin Ratio 1.4 (1.1-1.8); Calcium 9.6 mg/dl (8.4-10.2); Globulin 3.1 g/dL (1.3-3.2); Glucose 118 mg/dl (74-100)
[2021-05-20 19:01] LABS: Acetaminophen < 10 ug/ml (10-30); Salicylate < 1.0 mg/dL (2.0-20.0)
[2021-05-20 19:29] LABS: Thyroid Stimulating Hormone 2.18 uIU/mL (0.465-4.68)
[2021-05-20 19:48] LABS: Free T4 (Free Thyroxine) 0.84 ng/dl (0.78-2.19)
[2021-05-20 19:54] LABS: Amphetamine/Metha Screen,Urine Negative ng/ml (<1000)
[2021-05-20 19:55] LABS: Barbiturates Screen,Urine Negative ng/ml (<200)
[2021-05-20 19:56] LABS: Benzodiazepines Screen,Urine Negative ng/ml (<200); Cannabinoid Screen,Urine Negative ng/ml (<50)
[2021-05-20 19:57] LABS: Cocaine Screen,Urine Negative ng/ml (<300)
[2021-05-20 19:58] LABS: Methadone Screen,Urine Negative ng/ml (<300); Opiate Screen,Urine Negative ng/ml (<300)
[2021-05-20 19:59] LABS: Phencyclidine Screen,Urine Negative ng/ml (<25)
[2021-05-20 22:06] VITALS: BP 110/54; PULSE 80; RESP 18; TEMP 36.9; O2SAT 99
[2021-05-20 22:06] LABS: Coronavirus 19, PCR Not Detected (NotDetected); Influenza A, PCR Not Detected (NotDetected); Influenza B, PCR Not Detected (NotDetected)
--- NOTE | 2021-06-11 20:31 | HMH.EDGENADL ---
ED Disposition Clinical Impression: Encounter for medical assessment Disposition: Xfer Psychiatric Hosp Condition on Discharge: Good Additional Instructions: Follow up with medical providers at [facility]. Continue all home medications, return to ED with new, worsening, concerning symptoms. Referrals: Reg Hitchcock MD [Primary Care Provider] - - Critical Care Critical Care Time: No Attestation: On 05/20/21, the high probability of a clinically significant, sudden or life threatening deterioration of the following system(s) required my full and direct attention, intervention and personal management. The time I documented below is in addition to time spent performing reported procedures but includes the following listed in this critical care notation. Medical Decision Making - Medical Records Medical records reviewed: Yes: I reviewed the patient's medical records. - Ernesto Inquiry Pt receiving controlled substance: No Vital Signs: 05/20/21 17:08 05/20/21 17:31 05/20/21 18:04 Temperature 98.4 F Temperature Source Oral Pulse Rate 96 H 94 H Pulse Rate [Left Radial] 108 H Respiratory Rate 18 18 18 Blood Pressure 105/50 L 110/50 L Blood Pressure [Right Arm] 168/57 H Blood Pressure Mean 68 Blood Pressure Mean [Right Arm] 94 Blood Pressure Source [Right Arm] Automatic Cuff Blood Pressure Position [Right Arm] Sitting 02 Sat by Pulse Oximetry 98 98 96 Oxygen Delivery Method Room Air 05/20/21 22:06 Temperature 98.4 F Temperature Source Oral Pulse Rate 80 Pulse Rate [Left Radial] Respiratory Rate 18 Blood Pressure 110/54 L Blood Pressure [Right Arm] Blood Pressure Mean Blood Pressure Mean [Right Arm] Blood Pressure Source [Right Arm] Blood Pressure Position [Right Arm] 02 Sat by Pulse Oximetry Oxygen Delivery Method - Lab Data Lab Results 05/20/21 17:50: Urine Color Yellow, Urine Appearance Sl cloudy, Urine pH 6.0, Ur Specific [place] 1.010, Urine Protein Negative, Urine Glucose (UA) Negative, Urine Ketones Negative, Urine Blood 1+, Urine Nitrate Negative, Urine Bilirubin Negative, Urine Urobilinogen 0.2, Ur Leukocyte Esterase Negative, Urine RBC None, Urine WBC 3-5, Ur Squamous Epith Cells 3-5, Urine Bacteria 1+ 05/20/21 17:50: Urine Opiates Screen Negative, Urine Methadone Screen Negative, Ur Barbituates Screen Negative, Ur Phencyclidine Scrn Negative, Ur Amphetamines Screen Negative, U Benzodiazepines Scrn Negative, Urine Cocaine Screen Negative, U Marijuana (THC) Screen Negative 05/20/21 18:15: WBC 8.9, RBC 4.80, Hgb 12.9, Hct 41.4, MCV 86.3, MCH 27.0, MCHC 31.2 L, RDW 14.8, Plt Count 254, MPV 8.5, Neut % (Auto) 78.6, Lymph % (Auto) 13.4, [place] % (Auto) 5.8, Eos % (Auto) 1.2, Baso % (Auto) 1.0, Neut # (Auto) 7.0, Lymph # (Auto) 1.2, [place] # (Auto) 0.5, Eos # (Auto) 0.1, Baso # (Auto) 0.1 05/20/21 18:15: Sodium 142, Potassium 4.6, Chloride 104, Carbon Dioxide 28, Anion Gap 14.6, BUN 14, Creatinine 0.80, Estimated Creat Clear 78, Estimated GFR 70, Est GFR ( Amer) 85, Glucose 118 H, Calcium 9.6, Total Bilirubin 0.4, AST 28, ALT 17, Alkaline Phosphatase 81, Total Protein 7.5 D, Albumin 4.4, Globulin 3.1, Albumin/Globulin Ratio 1.4, TSH 2.18, Salicylates < 1.0 L, Acetaminophen < 10 L 05/20/21 18:15: Lactate 1.9 05/20/21 18:15: Free T4 0.84 05/20/21 22:01: SARS-CoV-2 (PCR) Not detected, Influenza A Untype (PCR) Not detected, Influenza Type B (PCR) Not detected Result diagrams: 05/20/21 18:15 05/20/21 18:15 - Radiology Data #1 Image(s): Chest Image Reviewed: Yes I reviewed the patient's radiology results, Yes I reviewed the patient's radiology image Preliminary Findings: Normal/NAD FINDINGS: Lungs: Minimal bibasilar atelectasis. No consolidation. Pleural spaces: Unremarkable. No pleural effusion. No pneumothorax. Heart/Mediastinum: Unremarkable. No cardiomegaly. Vasculature: Elongation of the thoracic aorta with calcification. Bones/joints: Ost
== END 2021-05-20 22:09 ==
PROVIDERS: Emergency Provider Emergency Medicine; PCP Emergency Medicine
DX: R41.82 Altered mental status, unspecified (principal); F03.91 Unspecified dementia, unspecified severity, with behavioral disturbance; J44.9 Chronic obstructive pulmonary disease, unspecified; I25.10 Atherosclerotic heart disease of native coronary artery without angina pectoris; K21.9 Gastro-esophageal reflux disease without esophagitis; E78.5 Hyperlipidemia, unspecified; I10 Essential (primary) hypertension; Z87.891 Personal history of nicotine dependence; Z79.899 Other long term (current) drug therapy
CPT/HCPCS: 36415; 70450; 71045; 80053; 80305; 80329; 81001; 83605; 84439; 84443; 85025; 87086; 99283; C9803; U0003; U0005

== ENCOUNTER → 2021-09-21 02:16 | Outpatient (CLI) | payer MEDICARE, MEDICAID, SELFPAY | PROVIDERS: Visit Provider Emergency Medicine | DX: L02.212 Cutaneous abscess of back [any part, except buttock and flank] (principal); B95.8 Unspecified staphylococcus as the cause of diseases classified elsewhere | CPT/HCPCS: 87070; 87077; 87186; 87205 ==

== ENCOUNTER 2021-09-26 09:42 | Outpatient (CLI) | payer MEDICARE, MEDICAID, SELFPAY ==
[2021-09-26 09:52] VITALS: BMI 36.6
--- NOTE | 2021-09-26 10:25 | XR_ITS ---
FINAL REPORT CLINICAL HISTORY: PICC line placement COMPARISON: 05/20/2021 FINDINGS: There is lordotic positioning. The heart size is normal. The mediastinum is within normal limits. There is no acute cardiopulmonary process. There is no pleural effusion. There is no pneumothorax. The bony thorax is intact. The tip of the left PICC line terminates in the SVC. IMPRESSION: No acute cardiopulmonary process. Left lung terminates in the SVC. Reviewed, Interpreted and Dictated by Barrington Urias MD Transcribed by Enrike Aquino Authenticated by Barrington Urias MD on 09/26/2021 10:53:40 AM [facility]
== END 2021-09-26 13:00 | disposition home or self-care (01) ==
LOC: INF 09:43
PROVIDERS: PCP Emergency Medicine; Visit Provider Emergency Medicine
DX: Z45.2 Encounter for adjustment and management of vascular access device (principal); L02.91 Cutaneous abscess, unspecified
CPT/HCPCS: 36569; 71045; C1751

== ENCOUNTER → 2021-09-27 23:42 | Outpatient (CLI) | payer MEDICARE, MEDICAID, SELFPAY ==
[2021-09-28 00:13] LABS: Anion Gap 6.6 mEq/L (5-15); Blood Urea Nitrogen 21 mg/dl (7-17); Calcium 8.2 mg/dl (8.4-10.2); Carbon Dioxide 26 mmol/L (22.0-30.0); Chloride 111 mmol/L (98-107); Estimated Glomerular Filt Rate 82 ml/min (>60); GFR (African American) 99 ML/MIN (>60); Glucose 102 mg/dl (74-100); Potassium 3.6 mmoL/L (3.5-5.1); Sodium 140 mmol/L (136-145)
[2021-09-28 00:17] LABS: Vancomycin,Trough 6.1 ug/mL (5.0-10.0)
== END ==
PROVIDERS: Visit Provider Emergency Medicine
DX: L02.91 Cutaneous abscess, unspecified (principal); Z51.81 Encounter for therapeutic drug level monitoring
CPT/HCPCS: 80048; 80202

== ENCOUNTER → 2021-09-30 11:40 | Outpatient (CLI) | payer MEDICARE, MEDICAID, SELFPAY ==
[2021-09-30 12:52] LABS: Vancomycin,Trough 14.3 ug/mL (5.0-10.0)
[2021-09-30 13:46] LABS: Chloride 106 mmol/L (98-107); Sodium 139 mmol/L (136-145)
[2021-09-30 13:49] LABS: Blood Urea Nitrogen 12 mg/dl (7-17); Carbon Dioxide 26 mmol/L (22.0-30.0); Estimated Glomerular Filt Rate 82 ml/min (>60); GFR (African American) 99 ML/MIN (>60)
[2021-09-30 13:50] LABS: Calcium 8.1 mg/dl (8.4-10.2); Glucose 118 mg/dl (74-100)
== END ==
PROVIDERS: PCP Emergency Medicine; Visit Provider Emergency Medicine
DX: I10 Essential (primary) hypertension (principal); Z51.81 Encounter for therapeutic drug level monitoring
CPT/HCPCS: 80048; 80202

== ENCOUNTER → 2021-10-03 23:40 | Outpatient (CLI) | payer MEDICARE, MEDICAID, SELFPAY ==
[2021-10-04 00:30] LABS: Anion Gap 9.2 mEq/L (5-15); Blood Urea Nitrogen 19 mg/dl (7-17); Calcium 8.4 mg/dl (8.4-10.2); Carbon Dioxide 26 mmol/L (22.0-30.0); Chloride 107 mmol/L (98-107); Estimated Glomerular Filt Rate 70 ml/min (>60); GFR (African American) 85 ML/MIN (>60); Glucose 107 mg/dl (74-100); Potassium 3.2 mmoL/L (3.5-5.1); Sodium 139 mmol/L (136-145)
== END ==
PROVIDERS: Visit Provider Emergency Medicine
DX: L02.91 Cutaneous abscess, unspecified (principal); Z51.81 Encounter for therapeutic drug level monitoring
CPT/HCPCS: 80048; 80202

== ENCOUNTER → 2021-10-08 00:24 | Outpatient (CLI) | payer MEDICARE, MEDICAID, SELFPAY ==
[2021-10-08 00:40] LABS: Microscopic, Urine URINE MICROSCOPIC (MICROSCOPIC)
[2021-10-08 00:55] LABS: Appearance,Urine CLEAR (Clear); Bilirubin,Urine Negative (Negative); Blood, Urine 1+ (Negative); Color,Urine YELLOW (Yellow); Glucose,Urine (UA) Negative (Negative); Ketones,Urine Negative (Negative); Leukocyte Esterase,Urine Negative (Negative); Nitrate,Urine Negative (Negative); Protein,Urine Negative (Negative); Specific Gravity, Urine 1.015 (1.005-1.030); Urobilinogen,Urine 0.2 EU/dl (0.2)
[2021-10-08 01:12] LABS: Bacteria,Urine 1+ /lpf
== END ==
PROVIDERS: Visit Provider Emergency Medicine
DX: R10.9 Unspecified abdominal pain (principal); R30.0 Dysuria
CPT/HCPCS: 81001

== ENCOUNTER → 2021-10-08 00:31 | Outpatient (CLI) | payer MEDICARE, MEDICAID, SELFPAY ==
[2021-10-08 00:53] LABS: Anion Gap 9.7 mEq/L (5-15); Blood Urea Nitrogen 19 mg/dl (7-17); Calcium 8.7 mg/dl (8.4-10.2); Carbon Dioxide 27 mmol/L (22.0-30.0); Chloride 108 mmol/L (98-107); Estimated Glomerular Filt Rate 70 ml/min (>60); GFR (African American) 85 ML/MIN (>60); Glucose 109 mg/dl (74-100); Potassium 3.7 mmoL/L (3.5-5.1); Sodium 141 mmol/L (136-145)
[2021-10-08 00:59] LABS: Vancomycin,Trough 17.2 ug/mL (5.0-10.0)
== END ==
PROVIDERS: Visit Provider Emergency Medicine
DX: L02.91 Cutaneous abscess, unspecified (principal); Z51.81 Encounter for therapeutic drug level monitoring
CPT/HCPCS: 80048; 80202; 81001

== ENCOUNTER → 2022-01-31 03:45 | Outpatient (CLI) | payer MEDICARE, MEDICAID, SELFPAY | PROVIDERS: PCP Emergency Medicine; Visit Provider Emergency Medicine | DX: S81.801A Unspecified open wound, right lower leg, initial encounter (principal); B96.4 Proteus (mirabilis) (morganii) as the cause of diseases classified elsewhere; B96.29 Other Escherichia coli [E. coli] as the cause of diseases classified elsewhere | CPT/HCPCS: 87070; 87186; 87205 ==

== ENCOUNTER → 2022-02-03 15:45 | Outpatient (CLI) | payer MEDICARE, MEDICAID, SELFPAY | PROVIDERS: PCP Emergency Medicine; Visit Provider Emergency Medicine | DX: Z01.812 Encounter for preprocedural laboratory examination (principal); Z20.822 Contact with and (suspected) exposure to COVID-19 | CPT/HCPCS: C9803; U0003; U0005 ==

== ENCOUNTER → 2022-02-13 12:08 | Outpatient (CLI) | payer MEDICARE, MEDICAID, SELFPAY | PROVIDERS: PCP Emergency Medicine; Visit Provider Emergency Medicine | DX: L03.116 Cellulitis of left lower limb (principal) | CPT/HCPCS: 87070; 87077; 87186; 87205 ==

== ENCOUNTER → 2022-06-17 16:20 | Outpatient (CLI) | payer MEDICARE, MEDICAID, SELFPAY | PROVIDERS: PCP Emergency Medicine; Visit Provider Emergency Medicine | DX: U07.1 COVID-19 (principal) | CPT/HCPCS: C9803; U0003; U0005 ==

== ENCOUNTER → 2022-10-29 12:37 | Outpatient (CLI) | payer MEDICARE, MEDICAID, SELFPAY | PROVIDERS: PCP Emergency Medicine; Visit Provider Emergency Medicine | DX: S91.002A Unspecified open wound, left ankle, initial encounter (principal); B96.89 Other specified bacterial agents as the cause of diseases classified elsewhere | CPT/HCPCS: 87070; 87077; 87186; 87205 ==

== ENCOUNTER → 2022-11-11 12:09 | Outpatient (CLI) | payer MEDICARE, MEDICAID, SELFPAY | PROVIDERS: PCP Emergency Medicine; Visit Provider Emergency Medicine | DX: S81.802A Unspecified open wound, left lower leg, initial encounter (principal); B96.5 Pseudomonas (aeruginosa) (mallei) (pseudomallei) as the cause of diseases classified elsewhere | CPT/HCPCS: 87070; 87077; 87186; 87205 ==

== ENCOUNTER → 2022-11-14 12:12 | Outpatient (CLI) | payer MEDICARE, MEDICAID, SELFPAY ==
--- NOTE | 2022-11-14 13:08 | PC.NURSE ---
Verbal consent for PICC line obtained from Olga CROSS. double verified with Velvet Posada RN.
== END ==
LOC: INF 12:13
PROVIDERS: PCP Emergency Medicine; Visit Provider Emergency Medicine
DX: Z45.2 Encounter for adjustment and management of vascular access device (principal); S91.301D Unspecified open wound, right foot, subsequent encounter; B37.2 Candidiasis of skin and nail
CPT/HCPCS: 36569; C1751

== ENCOUNTER → 2022-11-18 11:02 | Outpatient (CLI) | payer MEDICARE, MEDICAID, SELFPAY ==
[2022-11-18 11:38] LABS: Anion Gap 17.3 mEq/L (5-15); Blood Urea Nitrogen 16 mg/dl (7-17); Calcium 9.1 mg/dl (8.4-10.2); Carbon Dioxide 29 mmol/L (22.0-30.0); Chloride 103 mmol/L (98-107); Estimated Glomerular Filt Rate 61 ml/min (>60); GFR (African American) 74 ML/MIN (>60); Glucose 104 mg/dl (74-100); Potassium 4.3 mmoL/L (3.5-5.1); Sodium 145 mmol/L (136-145)
[2022-11-18 11:44] LABS: Gentamicin,Trough < 0.6 ug/ml (0.0-2.0)
== END ==
PROVIDERS: PCP Emergency Medicine; Visit Provider Emergency Medicine
DX: S91.301D Unspecified open wound, right foot, subsequent encounter (principal); B37.2 Candidiasis of skin and nail; Z51.81 Encounter for therapeutic drug level monitoring
CPT/HCPCS: 80048; 80170

== ENCOUNTER → 2022-11-20 11:07 | Outpatient (CLI) | payer MEDICARE, MEDICAID, SELFPAY ==
--- NOTE | 2022-11-20 12:00 | PC.NURSE ---
Discussed PICC insertion discussed with daughter (POA) and patient. Patient agreeable and had daughter sign the consent. As I was about to transfer the pt. to the procedure room, she decided she did not want to have the PICC placed. After discussing the benefits of having the PICC line, she still was not agreeable. Placement of a midline or IV catheter were offered but the patient continued to refuse. Pt. left with daughter to private vehicle.
== END ==
PROVIDERS: PCP Emergency Medicine; Visit Provider Emergency Medicine
DX: S91.301D Unspecified open wound, right foot, subsequent encounter (principal); B37.2 Candidiasis of skin and nail

== ENCOUNTER → 2022-12-09 12:58 | Outpatient (CLI) | payer MEDICARE, MEDICAID, SELFPAY | PROVIDERS: PCP Emergency Medicine; Visit Provider Emergency Medicine | DX: S91.301A Unspecified open wound, right foot, initial encounter (principal); S91.302A Unspecified open wound, left foot, initial encounter; B95.2 Enterococcus as the cause of diseases classified elsewhere | CPT/HCPCS: 87070; 87077; 87186; 87205 ==

== ENCOUNTER → 2023-02-10 20:11 | Outpatient (CLI) | payer MEDICARE, MEDICAID, SELFPAY | PROVIDERS: PCP Emergency Medicine; Visit Provider Emergency Medicine | DX: S81.802A Unspecified open wound, left lower leg, initial encounter (principal); B96.29 Other Escherichia coli [E. coli] as the cause of diseases classified elsewhere; B96.4 Proteus (mirabilis) (morganii) as the cause of diseases classified elsewhere; B96.1 Klebsiella pneumoniae [K. pneumoniae] as the cause of diseases classified elsewhere | CPT/HCPCS: 87070; 87077; 87186; 87205 ==

== ENCOUNTER → 2023-04-07 12:13 | Outpatient (CLI) | payer MEDICARE, MEDICAID, SELFPAY | PROVIDERS: PCP Emergency Medicine; Visit Provider Emergency Medicine | DX: S91.302A Unspecified open wound, left foot, initial encounter (principal); B96.89 Other specified bacterial agents as the cause of diseases classified elsewhere | CPT/HCPCS: 87070; 87205 ==

== ENCOUNTER 2023-07-28 18:50 | Outpatient (CLI) | payer MEDICARE, MEDICAID, SELFPAY ==
[2023-07-28 23:18] LABS: Adenovirus F 40/41, stool Not Detected (NotDetected); Astrovirus Not Detected (NotDetected); Campylobacter Not Detected (NotDetected); Clostridium Difficile A/B, PCR Not Detected (NotDetected); Cryptosporidium Not Detected (NotDetected); Cyclospora Cayetanesis Not Detected (NotDetected); Entamoeba histolytica Not Detected (NotDetected); Enteroaggregative E coli Not Detected (NotDetected); Enteropathogenic E coli Not Detected (NotDetected); Enterotoxigenic E coli Not Detected (NotDetected); Giardia lamblia Not Detected (NotDetected); Norovirus Not Detected (NotDetected); Plesimonas Shigalloides, PCR Not Detected (NotDetected); Rotavirus A Not Detected (NotDetected); Salmonella, PCR Not Detected (NotDetected); Sapovirus Not Detected (NotDetected); Shiga-like toxin E coli Not Detected (NotDetected); Shigella Enterovasive E coli Not Detected (NotDetected); Vibrio Cholerae Not Detected (NotDetected); Vibrio, PCR Not Detected (NotDetected); Yersinia Entercolitica, PCR Not Detected (NotDetected)
== END 2023-07-28 23:59 ==
PROVIDERS: PCP Internal Medicine; Visit Provider Internal Medicine
DX: R19.7 Diarrhea, unspecified (principal)
CPT/HCPCS: 87506

== ENCOUNTER 2023-07-30 20:41 | Outpatient (CLI) | payer MEDICARE, MEDICAID, SELFPAY | END 2023-07-30 23:59 | PROVIDERS: PCP Internal Medicine; Visit Provider Internal Medicine | DX: R05.9 Cough, unspecified (principal); B96.3 Hemophilus influenzae [H. influenzae] as the cause of diseases classified elsewhere | CPT/HCPCS: 87070; 87205 ==

== ENCOUNTER 2023-11-10 11:00 | Outpatient (CLI) | payer MEDICARE, MEDICAID, SELFPAY ==
[2023-11-10 11:11] LABS: Microscopic, Urine URINE MICROSCOPIC (MICROSCOPIC)
[2023-11-10 11:29] LABS: Appearance,Urine CLEAR (Clear); Bilirubin,Urine Negative (Negative); Blood, Urine Negative (Negative); Color,Urine YELLOW (Yellow); Glucose,Urine (UA) Negative (Negative); Ketones,Urine Negative (Negative); Leukocyte Esterase,Urine TRACE (Negative); Nitrate,Urine POSITIVE (Negative); Protein,Urine Negative (Negative); Urobilinogen,Urine 0.2 EU/dl (0.2)
[2023-11-10 11:40] LABS: Bacteria,Urine 4+ /lpf
== END 2023-11-10 23:59 | disposition home or self-care (01) ==
LOC: LAB.DROPOF 11:02
PROVIDERS: Family Medicine; PCP Internal Medicine; Visit Provider Internal Medicine
DX: N39.0 Urinary tract infection, site not specified (principal); B96.29 Other Escherichia coli [E. coli] as the cause of diseases classified elsewhere
CPT/HCPCS: 81001; 87086; 87088; 87186

== ENCOUNTER 2024-10-14 07:20 | Outpatient (CLI) | payer MEDICARE, MEDICAID, SELFPAY ==
[2024-10-14 07:47] LABS: Basophils # 0.1 K/mm3 (0-0.2); Basophils % 1.2 % (0.1-2.0); Eosinophils # 0.3 Kmm3 (0.0-0.4); Eosinophils % 4.8 % (0.1-12.0); Hematocrit 41.1 % (37.0-47.0); Hemoglobin 13.2 g/dL (12.2-16.2); Lymphocytes % 29.5 % (10-50); Mean Corpuscular HGB Conc 32.1 g/dL (31.8-35.4); Mean Corpuscular Hemoglobin 27.8 pg (27.0-31.2); Mean Corpuscular Volume 86.7 fl (81-99); Monocytes # 0.8 K/mm3 (0.1-1.0); Monocytes % 11.2 % (1.7-9.3); Neutrophils # 3.6 K/mm3 (1.8-7.8); Neutrophils % 53.2 % (37.0-80.0); Nucleated Red Blood Cells # 0 10^3/uL; Nucleated Red Blood Cells % 0 %; Platelet Count 204 K/mm3 (142-424); Red Blood Count 4.74 M/mm3 (4.20-5.40); Red Cell Distribution Width 14.5 % (11.5-17.5); Red Cell Distribution Width-SD 46.1 fL; White Blood Count 6.8 K/mm3 (4.8-10.8)
[2024-10-14 07:55] LABS: Alanine Aminotransferase 17 U/L (12-78); Albumin Level 4.2 g/dl (3.5-5.0); Albumin/Globulin Ratio 1.4 (1.1-1.8); Alkaline Phosphatase 81 U/L (38-126); Aspartate Amino Transferase 26 U/L (14-36); Bilirubin,Total 0.5 mg/dl (0.2-1.3); Blood Urea Nitrogen 14 mg/dl (7-17); Calcium 9.4 mg/dl (8.4-10.2); Carbon Dioxide 23 mmol/L (22.0-30.0); Chloride 110 mmol/L (98-107); Estimated Glomerular Filt Rate 70 ml/min (>60); GFR (African American) 84 ML/MIN (>60); Globulin 2.9 g/dL (1.3-3.2); Glucose 94 mg/dl (74-100); Sodium 140 mmol/L (136-145); Total Protein,Serum 7.1 g/dl (6.3-8.2)
[2024-10-14 08:08] LABS: 25-OH Vitamin D, Total 33.7 ng/mL (30-100)
[2024-10-14 08:10] LABS: Free T4 (Free Thyroxine) 0.55 ng/dl (0.78-2.19)
== END 2024-10-14 23:59 | disposition home or self-care (01) ==
PROVIDERS: PCP Nurse Practitioner Family; Visit Provider Nurse Practitioner Family
DX: I11.0 Hypertensive heart disease with heart failure (principal); I50.30 Unspecified diastolic (congestive) heart failure; Z87.19 Personal history of other diseases of the digestive system; Z87.448 Personal history of other diseases of urinary system
CPT/HCPCS: 36415; 80053; 82306; 84439; 84443; 85025

== ENCOUNTER 2024-11-28 06:53 | Outpatient (CLI) | payer MEDICARE, MEDICAID, SELFPAY ==
--- OUTSIDE RECORDS SUMMARY | 2024-11-28 06:55 | XMS_ITS | Clinical Summary ---
Author Organization [facility] Address [address] [place] [address] Phone Care Team Providers Care Boilermaker Name Role Phone Amada ELKINS, Mary Jo Rodriguez Unavailable Conditions or Problems Problem Name Problem Code Onset Date Status Entry Date Provider Comment Standard Description Annotate PSORIASIS 7931759 (SNOMED CT) Active Ifeanyi Shaver MD Psoriasis OBESITY 627651044 (SNOMED CT) Active Ifeanyi Shaver MD Obesity ABNORMAL SYNOVIAL FLUID 792.9 (ICD-9-CM) Active Gloria Herzog Other nonspecific abnormal findings in body substances BILATERAL PARTIAL KNEE ARTHROPLASTIES Z96.659 (ICD-10-CM ) Active Gloria Herzog Presence of unspecified artificial knee joint RIGHT KNEE INFECTION 682.6 (ICD-9-CM) Active Gloria Herzog Cellulitis and abscess of leg, except foot HX OF MRSA Z86.14 (ICD-10-CM ) Active Gloria Herzog Personal history of Methicillin resistant Staphylococcus aureus infection Medications Medication Instructions Start Date Stop Date Generic Name [facility] Provider ACIDOPHILUS PROBIOTIC BLEND CAPS PROBIOTIC PRODUCT 10826363831 Mary Jo Ybarra RN ESTRACE 1 MG TABS ESTRADIOL 36184395608 Mary Jo Ybarra RN TRIAMCINOLONE ACETONIDE 0.1 % OINT Twice daily to rash. TRIAMCINOLONE ACETONIDE 65741949607 Ifeanyi Shaver MD XOPENEX HFA AERO LEVALBUTEROL TARTRATE AERO 13255590110 Renetta Bah TRIHEXYPHENIDYL HCL TABLET TRIHEXYPHENIDYL HCL TABS 44736192234 eRnetta Bah TRIAMCINOLONE POWD TRIAMCINOLONE 62452329539 Renetta Bah SPIRIVA HANDIHALER CAPS TIOTROPIUM BROMIDE MONOHYDRATE CAPS 34290016624 Renetta Bah PROAIR HFA AEROSOL SOLUTION ALBUTEROL SULFATE AERS 47418068956 Renetta Bah POTASSIUM CHLORIDE ER CAPSULE EXTENDED RELEASE POTASSIUM CHLORIDE CR-CAPS 70995303921 Renetta Bah RA OMEPRAZOLE TBEC OMEPRAZOLE TBEC 96189885855 Renetta Bah NYSTOP POWD NYSTATIN POWD [phone] Renetta Bah METOLAZONE TABS METOLAZONE TABS 12880678771 Renetta Bah LEXAPRO TABS ESCITALOPRAM OXALATE TABS 60857497805 Renetta Bah LEVOTHROID TABS LEVOTHYROXINE SODIUM TABS 35503468172 Renetta Bah LAMICTAL TABS LAMOTRIGINE TABS 56105745859 Renetta Bah IBUPROFEN CAPS IBUPROFEN CAPS 61889074031 Renetta Bah HIBICLENS LIQUID CHLORHEXIDINE GLUCONATE LIQD 40180466478 Renetta Bah LASIX TABS FUROSEMIDE TABS 80006347248 Renetta Bah LITHIUM CARBONATE CAPS LITHIUM CARBONATE CAPS 02511574740 Renetta Bah ELOCON OINTMENT MOMETASONE FUROATE OINT 91422817715 Renetta Bah CLONAZEPAM TABS CLONAZEPAM TABS 33758333543 Renetta Bah RILEY ASPIRIN TABS ASPIRIN TABS 79271768118 Renetta Bah BACTROBAN MUPIROCIN OINT 41126262232 Renetta Bah ABILIFY TABS ARIPIPRAZOLE TABS 39371952630 Renetta Bah Medications Administered No information available. Allergies, Adverse Reactions, Alerts Allergy Name Reaction Description Start Date Severity Statu s Provider SULFA Moderate Active Renetta G ERYTHROMYCIN BASE Moderate Active K risten G DEPAKOTE Moderate Active Renetta G Results Date Name Value Unit Range Flag Description Clinical Lists Update: Prelo ad SMOK STATUS former smoker Tob acco smoking status Office Visit: new pt rm 6 MEDS REVIEW Done Documenta tion of current medications (procedure) Plan of Care No information available. Procedures No information available. Vital Signs Date Name Value Unit Description BMI (Body Mass Index) 43.14 kg/m2 Bod y Mass Index (Ratio) Body Temperature 97.5 [degF] temperat ure E&M BP Diastolic 68 mm[Hg] blood pressu re, diastolic BP Systolic 144 mm[Hg] blood pressur e, systolic Heart Rate 76 /min pulse rate Height 62 [in_us] height E&M Respiratory Rate 20 /min respirat ory rate E&M Weight Measured 235 [lb_av] weight E& M Weight Measured 235 [lb_av] weight E& M Immunizations No information available. Advance Directives No information available.
[2024-11-28 08:31] LABS: Free T4 (Free Thyroxine) 0.78 ng/dl (0.78-2.19)
[2024-11-28 08:48] LABS: Thyroid Stimulating Hormone 0.66 uIU/mL (0.465-4.68)
== END 2024-11-28 23:59 | disposition home or self-care (01) ==
PROVIDERS: PCP Family Medicine; Visit Provider Family Medicine
DX: E03.9 Hypothyroidism, unspecified (principal)
CPT/HCPCS: 36415; 84439; 84443

== ENCOUNTER 2025-01-04 07:11 | Outpatient (CLI) | payer MEDICARE, MEDICAID, SELFPAY ==
--- OUTSIDE RECORDS SUMMARY | 2025-01-04 07:13 | XMS_ITS | Clinical Summary ---
Author Organization [facility] Address [address] [place] [address] Phone Care Team Providers Care Scrubbing Machine Operator Name Role Phone Amada ELKINS, Mary Jo Rodriguez Unavailable Conditions or Problems Problem Name Problem Code Onset Date Status Entry Date Provider Comment Standard Description Annotate PSORIASIS 3845150 (SNOMED CT) Active Ifeanyi Shaver MD Psoriasis OBESITY 830885708 (SNOMED CT) Active Ifeanyi Shaver MD Obesity [...] Instructions Start Date Stop Date Generic Name [facility] Provider ACIDOPHILUS PROBIOTIC BLEND CAPS PROBIOTIC PRODUCT 08993107169 Mary Jo Ybarra RN ESTRACE 1 MG TABS ESTRADIOL 06576229564 Mary Jo Ybarra RN TRIAMCINOLONE ACETONIDE 0.1 % OINT Twice daily to rash. TRIAMCINOLONE ACETONIDE 53015501543 Ifeanyi Shaver MD XOPENEX HFA AERO LEVALBUTEROL TARTRATE AERO 19206584861 Renetta Bah TRIHEXYPHENIDYL HCL TABLET TRIHEXYPHENIDYL HCL TABS 45057179684 Renetta Bah TRIAMCINOLONE POWD TRIAMCINOLONE 78880796427 Renetta Bah SPIRIVA HANDIHALER CAPS TIOTROPIUM BROMIDE MONOHYDRATE CAPS 88671422318 Renetta Bah PROAIR HFA AEROSOL SOLUTION ALBUTEROL SULFATE AERS 06171021449 Renetta Bah POTASSIUM CHLORIDE ER CAPSULE EXTENDED RELEASE POTASSIUM CHLORIDE CR-CAPS 35158526873 Renetta Bah RA OMEPRAZOLE TBEC OMEPRAZOLE TBEC 57835317827 Renetta Bah NYSTOP POWD NYSTATIN POWD 34373400589 Renetta Bah METOLAZONE TABS METOLAZONE TABS 72124299040 Renetta Bah LEXAPRO TABS ESCITALOPRAM OXALATE TABS 80507648673 Renetta Bah LEVOTHROID TABS LEVOTHYROXINE SODIUM TABS 96334426237 Renetta Bah LAMICTAL TABS LAMOTRIGINE TABS 79764339464 Renetta Bah IBUPROFEN CAPS IBUPROFEN CAPS 68420398676 Renetta Bah HIBICLENS LIQUID CHLORHEXIDINE GLUCONATE LIQD 44934873161 Renetta Bah LASIX TABS FUROSEMIDE TABS 14182027699 Renetta Bah LITHIUM CARBONATE CAPS LITHIUM CARBONATE CAPS 75548269230 Renetta Bah ELOCON OINTMENT MOMETASONE FUROATE OINT 83204056220 Renetta Bah CLONAZEPAM TABS CLONAZEPAM TABS 25143638832 Renetta Bah RILEY ASPIRIN TABS ASPIRIN TABS 93006077483 Renetta Bah BACTROBAN MUPIROCIN OINT 67121494849 Renetta Bah ABILIFY TABS ARIPIPRAZOLE TABS 08857334268 Renetta Bah Medications Administered No information available. [...]
[2025-01-04 08:10] LABS: Cholesterol 115 mg/dl (140-200); HDL Cholesterol 48 mg/dl (40-60); Triglycerides 114 mg/dl (30-150)
[2025-01-04 08:41] LABS: Thyroid Stimulating Hormone 0.39 uIU/mL (0.465-4.68)
[2025-01-04 09:00] LABS: Vitamin B12 859 pg/mL (239-931)
[2025-01-04 09:37] LABS: Hepatitis C Ab Qual. W/ RFX NEGATIVE (Negative)
[2025-01-04 11:35] LABS: Hemoglobin A1C 5.7 % (4.0-6.0)
[2025-01-04 13:10] LABS: Free T4 (Free Thyroxine) 0.65 ng/dl (0.78-2.19)
== END 2025-01-04 23:59 | disposition home or self-care (01) ==
PROVIDERS: PCP Family Medicine; Visit Provider Nurse Practitioner Family
DX: Z13.1 Encounter for screening for diabetes mellitus (principal); E03.9 Hypothyroidism, unspecified; E78.5 Hyperlipidemia, unspecified; Z11.4 Encounter for screening for human immunodeficiency virus [HIV]; Z11.59 Encounter for screening for other viral diseases; E53.8 Deficiency of other specified B group vitamins
CPT/HCPCS: 36415; 80061; 80074; 80175; 82607; 83036; 84439; 84443; 87389

== ENCOUNTER 2025-02-08 08:15 | Outpatient (CLI) | payer MEDICARE, MEDICAID, SELFPAY ==
--- OUTSIDE RECORDS SUMMARY | 2025-02-08 08:25 | XMS_ITS | Clinical Summary ---
Author Organization [facility] Address [address] [place] [address] Phone Care Team Providers Care Draw Press Operator Name Role Phone Amada ELKINS, Mary Jo Rodriguez Unavailable Conditions or Problems Problem Name Problem Code Onset Date Status Entry Date Provider Comment Standard Description Annotate PSORIASIS 2561388 (SNOMED CT) Active Ifeanyi Shaver MD Psoriasis OBESITY 318832123 (SNOMED CT) Active Ifeanyi Shaver MD Obesity [...] Instructions Start Date Stop Date Generic Name [facility] Provider ACIDOPHILUS PROBIOTIC BLEND CAPS PROBIOTIC PRODUCT 01599064545 Mary Jo Ybarra RN ESTRACE 1 MG TABS ESTRADIOL 24529452336 Mary Jo Ybarra RN TRIAMCINOLONE ACETONIDE 0.1 % OINT Twice daily to rash. TRIAMCINOLONE ACETONIDE 72987527141 Ifeanyi Shaver MD XOPENEX HFA AERO LEVALBUTEROL TARTRATE AERO 71640823171 Renetta Bah TRIHEXYPHENIDYL HCL TABLET TRIHEXYPHENIDYL HCL TABS 31627537552 Renetta Bah TRIAMCINOLONE POWD TRIAMCINOLONE 30464682786 Renetta Bah SPIRIVA HANDIHALER CAPS TIOTROPIUM BROMIDE MONOHYDRATE CAPS 80295450092 Renetta Bah PROAIR HFA AEROSOL SOLUTION ALBUTEROL SULFATE AERS 09708509271 Renetta Bah POTASSIUM CHLORIDE ER CAPSULE EXTENDED RELEASE POTASSIUM CHLORIDE CR-CAPS 54541265241 Renetta Bah RA OMEPRAZOLE TBEC OMEPRAZOLE TBEC 79182552042 Renetta Bah NYSTOP POWD NYSTATIN POWD 10001482066 Renetta Bah METOLAZONE TABS METOLAZONE TABS 92998555595 Renetta Bah LEXAPRO TABS ESCITALOPRAM OXALATE TABS 84299551358 Renetta Bah LEVOTHROID TABS LEVOTHYROXINE SODIUM TABS 26524347074 Renetta Bah LAMICTAL TABS LAMOTRIGINE TABS 41649289709 Renetta Bah IBUPROFEN CAPS IBUPROFEN CAPS 42605967698 Renetta Bah HIBICLENS LIQUID CHLORHEXIDINE GLUCONATE LIQD 82940832313 Renetta Bah LASIX TABS FUROSEMIDE TABS 74927969978 Renetta Bah LITHIUM CARBONATE CAPS LITHIUM CARBONATE CAPS 37500467769 Renetta Bah ELOCON OINTMENT MOMETASONE FUROATE OINT 13620265463 Renetta Bah CLONAZEPAM TABS CLONAZEPAM TABS 91850486376 Renetta Bah RILEY ASPIRIN TABS ASPIRIN TABS 33338430690 Renetta Bah BACTROBAN MUPIROCIN OINT 39068299176 Renetta Bah ABILIFY TABS ARIPIPRAZOLE TABS 09691583446 Renetta Bah Medications Administered No information available. [...]
[2025-02-08 09:26] LABS: Free T4 (Free Thyroxine) 0.70 ng/dl (0.78-2.19)
[2025-02-08 09:39] LABS: Thyroid Stimulating Hormone 0.54 uIU/mL (0.465-4.68)
== END 2025-02-08 23:59 | disposition home or self-care (01) ==
PROVIDERS: PCP Nurse Practitioner Family; Visit Provider Nurse Practitioner Family
DX: E03.9 Hypothyroidism, unspecified (principal)
CPT/HCPCS: 36415; 84439; 84443

== ENCOUNTER 2025-02-22 08:10 | Outpatient (CLI) | payer MEDICARE, MEDICAID, SELFPAY | END 2025-02-22 23:59 | disposition home or self-care (01) | PROVIDERS: PCP Family Medicine; Visit Provider Family Medicine | DX: S41.001A Unspecified open wound of right shoulder, initial encounter (principal) | CPT/HCPCS: 87070; 87077; 87186; 87205 ==

== ENCOUNTER 2025-03-05 12:37 | Emergency (ER) | payer MEDICARE, MEDICAID, SELFPAY ==
[2025-03-05] VITALS (8 sets, daily range): BP systolic 94–129; BP diastolic 53–72; PULSE 74–113; RESP 12–18; TEMP 36.6–36.9; O2SAT 87–93; BMI 36.6
--- NOTE | 2025-03-05 12:37 | CT_ITS ---
PROCEDURE INFORMATION: Exam: CT Abdomen And Pelvis With Contrast Exam date and time: 03/05/2025 1:57 PM Age: 79 years old Clinical indication: Abdominal pain; Additional info: Abdominal pain, diarrhea TECHNIQUE: Imaging protocol: Computed tomography of the abdomen and pelvis with contrast. Radiation optimization: All CT scans at this facility use at least one of these dose optimization techniques: automated exposure control; mA and/or kV adjustment per patient size (includes targeted exams where dose is matched to clinical indication); or iterative reconstruction. Contrast material: ISOVUE; Contrast volume: 75 ml; Contrast route: IV; COMPARISON: CT ABDOMEN PELVIS WO CON 03/20/2021 5:35 AM FINDINGS: Lungs: 2.7 x 2.0 x 2.1 cm lobulated mass within the medial aspect of the left lower lobe appears similar to slightly increased in size. Scattered atelectatic changes are present within the right and left lower lung. Pleural spaces: No pleural effusion. Heart: Heart size within normal limits. No pericardial effusion. Coronary arteries: Moderate dense or coronary artery calcifications are present. Diaphragm: Very small hiatal hernia. Liver: Diffuse decreased density throughout the liver in keeping with hepatic steatosis. Liver is mildly enlarged. The liver surface demonstrates minimal smooth lobulation. No discrete mass or lesion within the liver. Gallbladder and biliary ducts: Gallbladder is absent. No intrahepatic ductal dilatation. Normal caliber of the common bile duct. Pancreas: The pancreas is unremarkable. Spleen: 12 mm area of decreased density in associated small 4 mm dense calcification within the superior aspect of the spleen likely is unchanged. Lack of intravenous contrast on prior examination limits evaluation. 6 mm hypodense nodule within the posterosuperior aspect of the spleen. Remainder of the spleen appears unremarkable. Adrenal glands: No adrenal mass. Kidneys and ureters: 6 mm exophytic hypodense nodule along the mid aspect of the right kidney is unchanged. Findings more in keeping with a small cyst but is too small to characterize further. Small 5 mm cortical hypodensity along the posterior mid right kidney also likely is unchanged. No solid suspicious renal mass. No hydronephrosis. No perinephric fluid collection. Ureters appear unremarkable. Stomach and bowel: Other extensive diverticulosis is present throughout the colon. Very minimal stranding within the pericolonic fat along the distal sigmoid colon may correspond to changes of very subtle or mild diverticulitis. Question minimal bowel wall thickening within the distal antrum of the stomach and junction with the duodenal bulb. No surrounding inflammatory change. Small bowel loops are normal in caliber. There is no evidence of a small bowel obstruction. Postsurgical changes are present from partial small bowel resection. Anastomosis within the anterior right midabdomen is patent. Appendix: Appendix is not discretely visualized. No secondary signs of acute appendicitis. Intraperitoneal space: No free fluid or free intraperitoneal air. Vasculature: No infrarenal abdominal aortic aneurysm. Moderate peripheral atherosclerotic plaque along the length of the infrarenal abdominal aorta. Major branch vessels are patent. Iliac arteries are patent. Lymph nodes: There are no enlarged or suspicious intra-abdominal, pelvic or retroperitoneal lymph nodes. No inguinal lymphadenopathy. Urinary bladder: The bladder appears unremarkable. Reproductive: Status post prior hysterectomy. No suspicious adnexal mass. Bones/joints: Bones are demineralized. Sacralization of the L5 segment of the right and left. Moderately advanced disc space narrowing and degenerative endplate changes present at L4-L5. No acute fracture. No areas of severe central spinal canal stenosis. Lkdbnvyg-zp-cpltbn bilateral neural foraminal narrowing at the L4-L5 level. Moderately advanced osteoarthritic changes are present at the right and left hip joint. SI joints appear symmetric. Soft tissues: Small periumbilical hernia containing fat. Peritoneal defect measures 12 x 12 mm. Small hernia sac measures up to 3.3 x 2.8 cm. IMPRESSION: 1. Rather extensive diverticulosis involving near the entire colon. There is question of very minimal stranding within the pericolonic fat along the distal sigmoid colon which could correspond to early changes of mild diverticulitis. No associated fluid collection or evidence of perforation. 2. Hepatic steatosis. 3. 2.7 cm lobulated pleural-based mass within the medial aspect of the left lower lobe. This remains indeterminate. This has been present dating back to 2020. Equivocal minimal increase in size on today's exam as compared to the prior. Pulmonology consultation should be considered if not already performed. 4. Small hiatal hernia. 5. Additional nonemergent findings as described. COMMENTS: Consistent with the [employer]'s Incidental Findings Committee white paper (J Am Jose Radiol 2018): Any incidental renal lesion less than 1 cm or classified as too small to characterize, or any incidental cystic renal lesion characterized as simple-appearing, is likely benign. No follow-up imaging is recommended for these lesions per consensus recommendations based on imaging criteria.
--- NOTE | 2025-03-05 12:41 | ED_ITS ---
<Statement entered by Alessio Siegel MD - 03/06/25 08:58> I was consulted by the JOSE C, and we discussed the complexity of the problems being addressed. I approved the treatment and management plan for this patient's care in the emergency department, thus performing a substantive portion of the medical decision making. Alessio Siegel MD Discharge Plan Disposition Patient Disposition: er [facility] Prescriptions Prescriptions: New levofloxacin 500 mg tablet 500 mg PO Q24H Qty: 7 0RF metronidazole 500 mg tablet 500 mg PO BID Qty: 20 0RF fluconazole 150 mg tablet 150 mg PO ONCE Qty: 1 0RF No Action lamotrigine 25 mg tablet 25 mg PO BID meclizine 12.5 mg tablet 12.5 mg PO .q8 PRN nicotine (polacrilex) 4 mg gum 4 mg buccal QID PRN Naphcon-A 0.025-0.3 % drops 2 drp Eye-Both BID PRN artificial tear(yhfbz-xoa-mko) [GenTeal Tears Moderate] 0.1-0.3-0.2 % drops 1 drp Eye-Both TID PRN fluticasone propion-salmeterol [Advair HFA] 230-21 mcg/actuation HFA aerosol inhaler 2 puff inhalation BID acetaminophen 500 mg tablet 500 mg PO Q6H PRN thiamine HCl (vitamin B1) 100 mg tablet 100 mg PO DAILY aspirin [Adult Aspirin Regimen] 81 mg tablet,delayed release (DR/EC) 81 mg PO DAILY cetirizine 10 mg tablet,disintegrating 10 mg PO DAILY fluticasone propionate [Flonase Allergy Relief] 50 mcg/actuation spray,suspension 1 spray intranasal DAILY Rx Instructions: administer into each nostril folic acid 1 mg tablet 1 mg PO DAILY memantine 10 mg tablet 10 mg PO BID quetiapine [Seroquel] 200 mg tablet 200 mg PO HS cyanocobalamin (vitamin B-12) 1,000 mcg capsule 1,000 mcg PO DAILY paliperidone palmitate 117 mg/0.75 mL syringe 117 mg IM Q28D atorvastatin [Lipitor] 20 mg tablet 20 mg PO QHS levothyroxine 13 mcg capsule 13 mcg PO DAILY Qty: 90 3RF Referrals Follow up/Referrals: Baljit Thompson MD [Primary Care Provider, Family Practice] - See instructions Clinical Impressions Clinical Impression: Acute UTI, Diverticulitis large intestine w/o perforation or abscess w/o bleeding Instructions Patient Instructions: Acute Cystitis, DI for Diverticulitis Print Language Print Language: Finnish Discharge ED Provider: Alessio Siegel General Adult HPI General Chief complaint: Nausea/Vomiting/Diarrhea Stated complaint: Diarrhea Time Seen by Provider: 03/05/25 12:39 History of Present Illness HPI narrative: Nicolas Davis is a 79-year-old female past medical history significant for COPD, CAD, bipolar, anxiety, GERD who presents emergency room tonight with complaints of diarrhea. Ms. Davis states her diarrhea started yesterday. Reports multiple episodes of diarrhea yesterday, 2 episodes of diarrhea this morning. Does have some mild abdominal pain associated with this, worse with palpation. Has not been on recent antibiotics. Does live in a snf, apparently 2-3 other residents down the same hallway she has diarrhea as well. Denies any fever. Patient is incontinent, does have history of frequent UTIs. Patient is virtually bedbound. Related Data Home Medications ?Medication ?Instructions ?Recorded ?Confirmed aspirin 81 mg tablet,delayed 81 mg PO DAILY [facility] 11/22/20 02/08/25 release (Adult Aspirin Regimen) cetirizine 10 mg disintegrating 10 mg PO DAILY 5 02/08/25 tablet cyanocobalamin (vitamin B-12) 1,000 mcg PO DAILY 08/2902/08/25 1,000 mcg capsule fluticasone propionate 50 1 spray intranasal DAILY 02/08/25 mcg/actuation nasal spray,suspension (Flonase Allergy Relief) folic acid 1 mg tablet 1 mg PO DAILY 08/29/2402/08 memantine 10 mg tablet 10 mg PO BID 08/29/24 paliperidone palmitate 117 mg/0.75 117 mg IM Q28D 08/1302/08/25 mL intramuscular syringe quetiapine 200 mg tablet (Seroquel) 200 mg PO HS 08/2902/08/25 acetaminophen 500 mg tablet 500 mg PO Q6H PRN 01/03/25 02/08/25 artificial 1 drp Eye-Both TID PRN 01/0302/08/25 tears(zyqecdw-sibasykl-xvbdbxs) 0.1 %-0.3 %-0.2 % eye drops (GenTeal Tears Moderate) atorvastatin 20 mg tablet (Lipitor) 20 mg PO QHS High cholesterol 01/03/25 02/08/25 fluticasone propionate 230 2 puff inhalation BID 01/0302/08/25 mcg-salmeterol 21 mcg/actuation HFA inhaler (Advair HFA) lamotrigine 25 mg tablet 25 mg PO BID 01/03/25 meclizine 12.5 mg tablet 12.5 mg PO .q8 PRN 01/03/25 02/08/25 naphazoline 0.025 %-pheniramine 2 drp Eye-Both BID PRN 01/03/25 02/08/25 0.3 % eye drops (Naphcon-A) nicotine (polacrilex) 4 mg gum 4 mg buccal QID PRN 02/08/25 thiamine HCl (vitamin B1) 100 mg 100 mg PO DAILY 01/0302/08/25 tablet Previous Rx's ?Medication ?Instructions ?Recorded levothyroxine 13 mcg capsule 13 mcg PO DAILY #90 caps 01/09/25 fluconazole 150 mg tablet 150 mg PO ONCE 2 doses #1 ta b 03/05/25 levofloxacin 500 mg tablet 500 mg PO Q24H #7 tabs 02/14 07/09 metronidazole 500 mg tablet 500 mg PO BID #20 tabs Allergies Allergy/AdvReac Type Severity Reaction Status Date / Time chlorhexidine (From Allergy Rash Verified 01/03/25 14:26 Hibiclens) divalproex sodium (From Allergy Unknown Verified 01/03/25 14:26 Depakote) allergy reaction lidocaine (From Lidoderm) Allergy Rash Verified 01/03/25 14:26 nicotine (From Nicoderm CQ) Allergy Rash Verified 01/03/25 14:26 azithromycin AdvReac Severe Verified 01/03/25 14:26 Sulfa (Sulfonamide AdvReac Nausea Verified 01/03/25 14:26 Antibiotics) [facility] Disclaimer: The information contained in this section may have been updated after the patient was seen, as this information can be updated by other users. Medical History Elevated blood pressure reading Vertigo Intertrigo Cigarette smoker former Alcohol use remote history HTN (hypertension) Seasonal rhinitis COPD (chronic obstructive pulmonary disease) Keratoconjunctivitis Sleep apnea Coronary artery disease Major neurocognitive disorder Schizoaffective disorder, bipolar type Urinary tract infection Shell infection of flexural skin Obesity (BMI 30.0-34.9) DYLAN (acute kidney injury) Ventral hernia with bowel obstruction Aspiration pneumonia Severe sepsis with acute organ dysfunction Acute chronic obstructive pulmonary disease with respiratory distress Dermatitis herpetiformis Restless legs syndrome Primary generalized (osteo)arthritis Generalized anxiety disorder Gastro-esophageal reflux disease without esophagitis Social History Smoking Status: Former smoker alcohol intake: never substance use type: denies use current occupational status: retired Travel in the last 8 weeks?: None Have you lived/traveled outside US in past 30 days?: No Contact w/someone who lives/traveled outside US past 30 days?: No Exposure to someone with infectious disease in past 14 days?: No Do you have a fever (greater than 100.4 F or 38 C)?: No Have you tested positive for COVID-19?: No Exposed to someone with COVID-19 in past 14 days?: No Do you have a sore throat?: No Do you have a cough?: No Do you have any weakness?: No Do you have any diarrhea?: No Are you experiencing any unusual bleeding?: No Do you have any muscle aches/pain?: No Do you have any abdominal pain?: No Are you experiencing loss of taste or smell?: No Other Medical History Have you received the Flu Vaccine for this season: No Have you received the Pneumonia Vaccine: Yes ROS Obtained: Yes All systems reviewed & no additional complaints except as documented Physical Exam General General appearance: alert and in no apparent distress Head Head exam: atraumatic, normocephalic and normal inspection Eye Eye exam: Present normal appearance, PERRL and EOMI ENT ENT exam: Present normal exam, normal oropharynx, mucous membranes moist, TM's normal bilaterally and normal external ear exam Neck Neck exam: Present normal inspection, full ROM and trachea midline; Absent meningismus or lymphadenopathy Chest Chest inspection: Present normal inspection and symmetric chest wall rise; Absent tenderness Respiratory Respiratory exam: Present normal lung sounds bilaterally; Absent respiratory distress Cardiovascular Cardiovascular exam: Present regular rate and normal rhythm; Absent JVD Abdominal Exam Abdominal exam: Present tenderness (TPP lower abdomen, ) and normal bowel sounds; Absent guarding, rebound or rigidity Extremities Exam Extremities exam: Present normal inspection, full ROM and normal capillary refill; Absent calf tenderness Back Exam Back exam: Present normal inspection; Absent tenderness Neurological Exam Neurological exam: Present alert and oriented X3 Psychiatric Psychiatric exam: Present normal affect and normal mood Skin Skin exam: Present warm, dry, intact and normal color Lymphatic Lymphatic Findings: no adenopathy Medical Decision Making Medical Records Screening: Per USPSTF and CDC recommendations, given the prevalence of disease in our region, it is our hospital?s policy to screen for HIV and viral Hepatitis for all patients aged 18 and over and those with ongoing risk factors. Ernesto Inquiry Pt receiving controlled substance: No Vital Signs: 03/05/25 12:28 03/05/25 12:59 03/05/25 13:13 Temperature 97.9 F Temperature Source Oral Pulse Rate 113 H 107 H Pulse Rate [Radial] 109 H Respiratory Rate 16 Blood Pressure 129/72 94/59 L Blood Pressure [Right Arm] 129/72 Blood Pressure Mean [Right Arm] 91 Blood Pressure Source [Right Arm] Automatic Cuff Blood Pressure Position [Right Arm] Supine 02 Sat by Pulse Oximetry 87 L 91 L 91 L Oxygen Delivery Method Room Air 03/05/25 13:30 03/05/25 14:30 03/05/25 15:01 Temperature Temperature Source Pulse Rate 94 H 89 74 Pulse Rate [Radial] Respiratory Rate 13 12 15 Blood Pressure 100/53 L 101/59 L 111/62 Blood Pressure [Right Arm] Blood Pressure Mean [Right Arm] Blood Pressure Source [Right Arm] Blood Pressure Position [Right Arm] 02 Sat by Pulse Oximetry 90 L 93 L 91 L Oxygen Delivery Method 03/05/25 15:30 Temperature Temperature Source Pulse Rate Pulse Rate [Radial] Respiratory Rate 15 Blood Pressure Blood Pressure [Right Arm] Blood Pressure Mean [Right Arm] Blood Pressure Source [Right Arm] Blood Pressure Position [Right Arm] 02 Sat by Pulse Oximetry Oxygen Delivery Method Lab Data Lab Results 03/05/25 13:15: Urine Color Yellow, Urine Appearance Cloudy, Urine pH 5.5, Ur Specific [place] >= 1.030, Urine Protein 1+ A, Urine Glucose (UA) Negative, Urine Ketones Trace, Urine Blood 2+ A, Urine Nitrate Positive A, Urine Bilirubin 1+ A, Urine Urobilinogen 0.2, Ur Leukocyte Esterase 2+ A, Urine RBC 5-10, Urine WBC Tntc, Ur Squamous Epith Cells 3-5, Urine Bacteria 3+ 03/05/25 13:19: WBC 10.0, RBC 4.59, Hgb 13.3, Hct 40.9, MCV 89.1, MCH 29.0, MCHC 32.5, RDW 13.3, Plt Count 203, MPV 10.7 H, Neut % (Auto) 76.0, Lymph % (Auto) 13.0, Emmons % (Auto) 9.2, Eos % (Auto) 0.7, Baso % (Auto) 0.7, Neut # (Auto) 7.6, Lymph # (Auto) 1.3, Emmons # (Auto) 0.9, Eos # (Auto) 0.1, Baso # (Auto) 0.1, Sodium 138, Potassium 4.1, Chloride 102, Carbon Dioxide 28, Anion Gap 12.1, BUN 22 H, Creatinine 1.10 H, Estimated Creat Clear 67, Estimated GFR 48 L, Est GFR ( Amer) 58 L, Glucose 160 H, Calcium 8.8, Total Bilirubin 0.7, AST 32, ALT 21, Alkaline Phosphatase 76, Total Protein 7.2, Albumin 4.1, Globulin 3.1, Albumin/Globulin Ratio 1.3, Lipase 63 03/05/25 13:19 03/05/25 13:19 Orders (Tests/Meds): ED MEDICATIONS Generic Name Dose Route Start Last Admin Trade Name Freq PRN Reason Stop Dose Admin Levofloxacin 500 mg 03/05/25 16:11 Levofloxacin 500mg Tab PO 03/05/25 16:12 ONCE ONE Metronidazole 500 mg 03/05/25 16:11 Metronidazole 500 Mg Tablet PO 03/05/25 16:12 ONCE ONE Discontinued Medications Generic Name Dose Route Start Last Admin Trade Name Freq PRN Reason Stop Dose Admin Sodium Chloride 1,000 mls @ 999 mls/hr 03/05/25 12:33 03/05/25 13:13 Sod Chlor 0.9% 1000ml Bag IV 03/05/25 13:33 999 mls/hr .Q1H1M ONE Administration Iopamidol 75 ml 03/05/25 13:55 03/05/25 13:56 Iopamidol-370 (76%);100ml Bottle IV 03/05/25 13:56 75 ml ONCE ONE Administration Sodium Chloride 10 ml 03/05/25 13:55 03/05/25 13:56 Sodium Chloride 0.9% 10ml Syr (Rad Only) IV 03/05/25 13:56 10 ml ONCE ONE Administration ORDERS Category Date Time Status CT abdomen pelvis w con Stat Cat Scan 03/05/25 12:37 Completed CBC w/Auto Diff [Complete Blood Count Auto Diff] Stat Lab 03/05/25 13:19 Completed CMP [Comprehensive Metabolic Panel] Stat Lab 03/05/25 13:19 Completed Diarrhea 23 Panel, PCR Stat Lab 03/05/25 12:33 Ordered HIV Combo Stat Lab 03/05/25 13:07 Ordered Hepatitis C Ab Qual. W/ RFX Stat Lab 03/05/25 13:07 Ordered Lipase Stat Lab 03/05/25 13:19 Completed UA [Urinalysis and Microscopic] Stat Lab 03/05/25 13:15 Completed Urine Culture Stat Micro 03/05/25 13:15 Received Medical Decision Narrative: In summary patient is an 79-year-old female who presents emergency department for evaluation of diarrhea. Patient reports diarrhea for 2 days. Does have some mild lower abdominal tenderness. No fever noted. Does live in a snf, other residents apparently have had diarrhea this week as well. Patient is mildly tachycardic with a heart rate in the 110s, afebrile, vital signs otherwise stable. Unremarkable physical exam except for some mild tender to palpation in the lower abdomen. Differential diagnosis includes gastritis, colitis, C. difficile, diverticulitis. Initial workup will be conducted with hematologic labs, CT of the abdomen pelvis with contrast. Initial interventions include 1 L crystalloid bolus with normal saline. Initial workup reviewed by hi hematologic labs essentially unremarkable. Creatinine at 1.1, no leukocytosis noted. UA shows acute cystitis with positive nitrates, 2+ leuks and TNTC WBCs. CT of the abdomen pelvis with contrast shows extensive diverticulosis, questionable minimal stranding showing possible early mild diverticulitis, no fluid collection, no evidence of perforation. Was noted to have a 2.7 cm lobulated mass which has been present since 2020, family is aware of this finding. Patient was given 1 L IV fluid bolus, and was started on Flagyl and Levaquin which will cover her acute cystitis as well as her possible diverticulitis. She was given a first dose here and she can start her antibiotics tomorrow at the snf. Upon repeat evaluation patient's heart rate came down to the upper 90s/low 100s. No abdominal pain noted at this time. Afebrile. Given this patient is medically stable and appropriate for discharge at this time. Discharge structures were given to her daughter who is at bedside, return precautions were given and daughter verbalized understanding. Daughter requested an order for Diflucan to be given as patient is very prone to yeast infections as well, and this will be sent to the pharmacy. Critical Care Critical Care Time Critical Care Time: No
--- OUTSIDE RECORDS SUMMARY | 2025-03-05 12:53 | XMS_ITS | Clinical Summary ---
Author Organization [facility] Address [address] [place] [address] Phone Care Team Providers Care [employer] Finisher Name Role Phone Amada ELKINS, Mary Jo Rodriguez Unavailable Conditions or Problems Problem Name Problem Code Onset Date Status Entry Date Provider Comment Standard Description Annotate PSORIASIS 3464436 (SNOMED CT) Active Ifeanyi Shaver MD Psoriasis OBESITY 010253235 (SNOMED CT) Active Ifeanyi Shaver MD Obesity [...] Instructions Start Date Stop Date Generic Name [facility] Provider ACIDOPHILUS PROBIOTIC BLEND CAPS PROBIOTIC PRODUCT [id number] Mary Jo Ybarra RN ESTRACE 1 MG TABS ESTRADIOL [id number] Mary Jo Ybarra RN TRIAMCINOLONE ACETONIDE 0.1 % OINT Twice daily to rash. TRIAMCINOLONE ACETONIDE [id number] Ifeanyi Shaver MD XOPENEX HFA AERO LEVALBUTEROL TARTRATE AERO [id number] Renetta Bah TRIHEXYPHENIDYL HCL TABLET TRIHEXYPHENIDYL HCL TABS [id number] Renetta Bah TRIAMCINOLONE POWD TRIAMCINOLONE [id number] Renetta Bah SPIRIVA HANDIHALER CAPS TIOTROPIUM BROMIDE MONOHYDRATE CAPS [id number] Renetta Bah PROAIR HFA AEROSOL SOLUTION ALBUTEROL SULFATE AERS [id number] Renetta Bah POTASSIUM CHLORIDE ER CAPSULE EXTENDED RELEASE POTASSIUM CHLORIDE CR-CAPS [id number] Renetta Bah RA OMEPRAZOLE TBEC OMEPRAZOLE TBEC [id number] Renetta Bah NYSTOP POWD NYSTATIN POWD [id number] Renetta Bah METOLAZONE TABS METOLAZONE TABS [id number] Renetta Bah LEXAPRO TABS ESCITALOPRAM OXALATE TABS [id number] Renetta Bah LEVOTHROID TABS LEVOTHYROXINE SODIUM TABS [id number] Renetta Bah LAMICTAL TABS LAMOTRIGINE TABS [id number] Renetta Bah IBUPROFEN CAPS IBUPROFEN CAPS [id number] Renetta Bah HIBICLENS LIQUID CHLORHEXIDINE GLUCONATE LIQD [id number] Renetta Bah LASIX TABS FUROSEMIDE TABS [id number] Renetta Bah LITHIUM CARBONATE CAPS LITHIUM CARBONATE CAPS [id number] Renetta Bah ELOCON OINTMENT MOMETASONE FUROATE OINT [id number] Renetta Bah CLONAZEPAM TABS CLONAZEPAM TABS [id number] Renetta Bah RILEY ASPIRIN TABS ASPIRIN TABS [id number] Renetta Bah BACTROBAN MUPIROCIN OINT [id number] Renetta Bah ABILIFY TABS ARIPIPRAZOLE TABS [phone] Renetta Bah Medications Administered No information available. [...]
[2025-03-05] MEDS: 0.9 % SODIUM CHLORIDE 1000ML 1,000 ML 999 ML IV (13:13)
[2025-03-05 13:21] LABS: Microscopic, Urine URINE MICROSCOPIC (MICROSCOPIC)
[2025-03-05 13:24] LABS: Color,Urine YELLOW (Yellow); Glucose,Urine (UA) Negative (Negative); Ketones,Urine TRACE (Negative); Leukocyte Esterase,Urine 2+ (Negative); PH,Urine 5.5 (5.0-8.5); Protein,Urine 1+ (Negative); Specific Gravity, Urine >= 1.030 (1.005-1.030); Urobilinogen,Urine 0.2 EU/dl (0.2)
[2025-03-05 13:28] LABS: Hematocrit 40.9 % (37.0-47.0); Hemoglobin 13.3 g/dL (12.2-16.2); Immature Granulocytes % 0.4 %; Mean Corpuscular HGB Conc 32.5 g/dL (31.8-35.4); Mean Corpuscular Hemoglobin 29.0 pg (27.0-31.2); Mean Corpuscular Volume 89.1 fl (81-99); Nucleated Red Blood Cells % 0 %; Platelet Count 203 K/mm3 (142-424); Red Blood Count 4.59 M/mm3 (4.20-5.40); Red Cell Distribution Width-SD 43.2 fL; White Blood Count 10.0 K/mm3 (4.8-10.8)
[2025-03-05 13:29] LABS: Bilirubin,Urine 1+ (Negative)
[2025-03-05 13:30] LABS: Albumin Level 4.1 g/dl (3.5-5.0); Chloride 102 mmol/L (98-107); Sodium 138 mmol/L (136-145)
[2025-03-05 13:31] LABS: Potassium 4.1 mmoL/L (3.5-5.1)
[2025-03-05 13:33] LABS: Alanine Aminotransferase 21 U/L (12-78); Albumin/Globulin Ratio 1.3 (1.1-1.8); Alkaline Phosphatase 76 U/L (38-126); Anion Gap 12.1 mEq/L (5-15); Aspartate Amino Transferase 32 U/L (14-36); Bilirubin,Total 0.7 mg/dl (0.2-1.3); Blood Urea Nitrogen 22 mg/dl (7-17); Calcium 8.8 mg/dl (8.4-10.2); Carbon Dioxide 28 mmol/L (22.0-30.0); Creatinine Clearance Estimated 67 mL/min (50-200); Creatinine,Serum 1.10 mg/dl (0.52-1.04); Estimated Glomerular Filt Rate 48 ml/min (>60); GFR (African American) 58 ML/MIN (>60); Globulin 3.1 g/dL (1.3-3.2); Glucose 160 mg/dl (74-100); Lipase 63 U/L (23-300); Total Protein,Serum 7.2 g/dl (6.3-8.2)
[2025-03-05] MEDS: SODIUM CHLORIDE 0.9% 10ML SYR (RAD ONLY) 10 ML IV (13:56)
[2025-03-05] MEDS: IOPAMIDOL-370 (76%);100ML BOTTLE 75 ML IV (13:56)
[2025-03-05 14:03] LABS: Bacteria,Urine 3+ /lpf; WBC,Urine TNTC #/hpf (0-3)
--- NOTE | 2025-03-05 16:05 | PC.NURSE ---
i have attempted to Call report to nursing facility multiple times.
--- NOTE | 2025-03-05 16:41 | PC.NURSE ---
report called to Susie Brandt RN
[2025-03-05 19:04] LABS: Hepatitis C Ab Qual. W/ RFX NEGATIVE (Negative)
== END 2025-03-05 16:38 ==
PROVIDERS: Nurse Practitioner Acute Care; Emergency Provider Emergency Medicine; PCP Family Medicine
DX: R10.30 Lower abdominal pain, unspecified (principal); N39.0 Urinary tract infection, site not specified; K57.32 Diverticulitis of large intestine without perforation or abscess without bleeding; R19.7 Diarrhea, unspecified
CPT/HCPCS: 74177; 80053; 81001; 83690; 85025; 86803; 87086; 87088; 87186; 87389; 96360; 99285; J7030; Q9967

== ENCOUNTER 2025-03-24 06:28 | Outpatient (CLI) | payer MEDICARE, MEDICAID, SELFPAY ==
--- OUTSIDE RECORDS SUMMARY | 2025-03-24 06:31 | XMS_ITS | Clinical Summary ---
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 TRIAMCINOLONE ACETONIDE 54942254589 Ifeanyi Shaver MD XOPENEX HFA AERO LEVALBUTEROL TARTRATE AERO 48651353998 Renetta Bah TRIHEXYPHENIDYL HCL TABLET TRIHEXYPHENIDYL HCL TABS 07436611737 Renetta Bah TRIAMCINOLONE POWD TRIAMCINOLONE 76706883627 Renetta Bah SPIRIVA HANDIHALER CAPS TIOTROPIUM BROMIDE MONOHYDRATE CAPS 17388774113 Renetta Bah PROAIR HFA AEROSOL SOLUTION ALBUTEROL SULFATE AERS 52333904819 Renetta Bah POTASSIUM CHLORIDE ER CAPSULE EXTENDED RELEASE POTASSIUM CHLORIDE CR-CAPS 86023708164 Renetta Bah RA OMEPRAZOLE TBEC OMEPRAZOLE TBEC 02878876117 Renetta Bah NYSTOP POWD NYSTATIN POWD 49271816691 Renetta Bah METOLAZONE TABS METOLAZONE TABS 29942357007 Renetta Bah LEXAPRO TABS ESCITALOPRAM OXALATE TABS 04467819531 Renetta Bah LEVOTHROID TABS LEVOTHYROXINE SODIUM TABS 64459041123 Renetta Bah LAMICTAL TABS LAMOTRIGINE TABS 10118779152 Renetta Bah IBUPROFEN CAPS IBUPROFEN CAPS 65362679316 Renetta Bah HIBICLENS LIQUID CHLORHEXIDINE GLUCONATE LIQD 32577254283 Renetta Bah LASIX TABS FUROSEMIDE TABS 21284029993 Renetta Bah LITHIUM CARBONATE CAPS LITHIUM CARBONATE CAPS 81012475148 Renetta Bah ELOCON OINTMENT MOMETASONE FUROATE OINT 92689870392 Renetta Bah CLONAZEPAM TABS CLONAZEPAM TABS 51530204072 Renetta Bah RILEY ASPIRIN TABS ASPIRIN TABS 41432498338 Renetta Bah BACTROBAN MUPIROCIN OINT 79466993326 Renetta Bah ABILIFY TABS ARIPIPRAZOLE TABS 09404552142 Renetta Bah Medications Administered No information available. [...]
--- NOTE | 2025-03-24 07:00 | CT_ITS ---
FINAL REPORT TECHNIQUE: Thin section axial images were obtained from the lung apices through the upper abdomen without contrast. This study was performed with techniques to keep radiation doses as low as reasonably achievable (ALARA). Individualized dose reduction techniques using automated exposure control or adjustment of mA and/or kV according to the patient's size were employed. CLINICAL HISTORY: Evaluate pulmonary mass found on abd/pelvis ct COMPARISON: CT abdomen and pelvis 03/05/2025 FINDINGS: There is no mediastinal, hilar, or axillary lymphadenopathy. No pleural or pericardial effusion. Changes of emphysema are present. There is a lobular mass in the medial left lower lobe, measuring 29 mm in the axial plane. The lungs are otherwise clear. Limited, unenhanced evaluation of the upper abdomen is without acute abnormality. There is no acute osseous abnormality. IMPRESSION: 1. Lobular left lower lobe mass, malignancy not excluded. A note in the report of the CT abdomen and pelvis from 03/05/2025 indicates that there is a prior CT from 2020, and this mass may be stable since that time. 2. Recommend PET/CT for further evaluation. Reviewed, Interpreted and Dictated by Amanda Merritt MD Transcribed by [employer] Authenticated and [facility]
== END 2025-03-24 23:59 | disposition home or self-care (01) ==
LOC: RAD 06:29
PROVIDERS: PCP Family Medicine; Visit Provider Family Medicine
DX: R91.8 Other nonspecific abnormal finding of lung field (principal)
CPT/HCPCS: 71250

== ENCOUNTER 2025-03-29 07:09 | Outpatient (CLI) | payer MEDICARE, MEDICAID, SELFPAY ==
[2025-03-29 07:10] LABS: Microscopic, Urine URINE MICROSCOPIC (MICROSCOPIC)
[2025-03-29 09:00] LABS: Bilirubin,Urine Negative (Negative); Glucose,Urine (UA) Negative (Negative); Ketones,Urine Negative (Negative); Leukocyte Esterase,Urine Negative (Negative); PH,Urine 6.0 (5.0-8.5); Protein,Urine Negative (Negative); Specific Gravity, Urine 1.020 (1.005-1.030); Urobilinogen,Urine 0.2 EU/dl (0.2)
[2025-03-29 09:06] LABS: Color,Urine Dark Yellow (Yellow)
[2025-03-29 09:10] LABS: Bacteria,Urine Trace /lpf; RBC,Urine Occasional #/hpf (0-3)
== END 2025-03-29 23:59 | disposition home or self-care (01) ==
PROVIDERS: PCP Nurse Practitioner Family; Visit Provider Nurse Practitioner Family
DX: N39.0 Urinary tract infection, site not specified (principal)
CPT/HCPCS: 81001; 87086

== ENCOUNTER 2025-04-16 11:46 | Outpatient (CLI) | payer MEDICARE, MEDICAID, SELFPAY ==
--- OUTSIDE RECORDS SUMMARY | 2025-04-16 11:50 | XMS_ITS | Clinical Summary ---
Author Organization [facility] Address [address] [place] [address] Phone Care Team Providers Care Spot Worker Name Role Phone Amada ELKINS, Mary Jo Rodriguez Unavailable Conditions or Problems Problem Name Problem Code Onset Date Status Entry Date Provider Comment Standard Description Annotate PSORIASIS 9904156 (SNOMED CT) Active Ifeanyi Shaver MD Psoriasis OBESITY 884590444 (SNOMED CT) Active Ifeanyi Shaver MD Obesity [...] Start Date Stop Date Generic Name [facility] Provider ACIDOPHILUS PROBIOTIC BLEND CAPS PROBIOTIC PRODUCT [id number] Mary Jo Ybarra RN ESTRACE 1 MG TABS ESTRADIOL 31718508033 Mary Jo Ybarra RN TRIAMCINOLONE ACETONIDE 0.1 % OINT Twice daily to rash. TRIAMCINOLONE ACETONIDE 06134393441 Ifeanyi Shaver MD XOPENEX HFA AERO LEVALBUTEROL TARTRATE AERO 61917942045 Renetta Bah TRIHEXYPHENIDYL HCL TABLET TRIHEXYPHENIDYL HCL TABS 42563659091 Renetta Bah TRIAMCINOLONE POWD TRIAMCINOLONE 74802906655 Renetta Bah SPIRIVA HANDIHALER CAPS TIOTROPIUM BROMIDE MONOHYDRATE CAPS 45540987284 Renetta Bah PROAIR HFA AEROSOL SOLUTION ALBUTEROL SULFATE AERS 05332399702 Renetta Bah POTASSIUM CHLORIDE ER CAPSULE EXTENDED RELEASE POTASSIUM CHLORIDE CR-CAPS 70146137746 Renetta Bah RA OMEPRAZOLE TBEC OMEPRAZOLE TBEC 01962652873 Renetta Bah NYSTOP POWD NYSTATIN POWD 77933193240 Renetta Bah METOLAZONE TABS METOLAZONE TABS 43607222291 Renetta Bah LEXAPRO TABS ESCITALOPRAM OXALATE TABS 88840181288 Renetta Bah LEVOTHROID TABS LEVOTHYROXINE SODIUM TABS 57995661417 Renetta Bah LAMICTAL TABS LAMOTRIGINE TABS 16541726567 Renetta Bah IBUPROFEN CAPS IBUPROFEN CAPS 74607240269 Renetta Bah HIBICLENS LIQUID CHLORHEXIDINE GLUCONATE LIQD 83580620389 Renetta Bah LASIX TABS FUROSEMIDE TABS 10274736006 Renetta Bah LITHIUM CARBONATE CAPS LITHIUM CARBONATE CAPS 54419155184 Renetta Bah ELOCON OINTMENT MOMETASONE FUROATE OINT 19079750647 Renetta Bah CLONAZEPAM TABS CLONAZEPAM TABS 59438876008 Renetta Bah RILEY ASPIRIN TABS ASPIRIN TABS 28734285375 Renetta Bah BACTROBAN MUPIROCIN OINT 20272220936 Renetta Bah ABILIFY TABS ARIPIPRAZOLE TABS 93845801190 Renetta Bah Medications Administered No information available. [...]
[2025-04-16 12:26] LABS: Coronavirus 19, PCR Not Detected (NotDetected); Influenza A, PCR Not Detected (NotDetected); Influenza B, PCR Not Detected (NotDetected)
[2025-04-16 12:28] LABS: Hematocrit 38.8 % (37.0-47.0); Hemoglobin 12.3 g/dL (12.2-16.2); Immature Granulocytes % 0.4 %; Mean Corpuscular HGB Conc 31.7 g/dL (31.8-35.4); Mean Corpuscular Hemoglobin 28.7 pg (27.0-31.2); Mean Corpuscular Volume 90.7 fl (81-99); Nucleated Red Blood Cells % 0 %; Platelet Count 202 K/mm3 (142-424); Red Blood Count 4.28 M/mm3 (4.20-5.40); Red Cell Distribution Width-SD 45.9 fL; White Blood Count 7.7 K/mm3 (4.8-10.8)
[2025-04-16 12:48] LABS: Alanine Aminotransferase 17 U/L (12-78); Albumin Level 3.9 g/dl (3.5-5.0); Albumin/Globulin Ratio 1.0 (1.1-1.8); Alkaline Phosphatase 105 U/L (38-126); Anion Gap 12.1 mEq/L (5-15); Aspartate Amino Transferase 22 U/L (14-36); Bilirubin,Total 0.7 mg/dl (0.2-1.3); Blood Urea Nitrogen 22 mg/dl (7-17); Calcium 8.9 mg/dl (8.4-10.2); Carbon Dioxide 25 mmol/L (22.0-30.0); Chloride 106 mmol/L (98-107); Creatinine,Serum 1.10 mg/dl (0.52-1.04); Estimated Glomerular Filt Rate 48 ml/min (>60); GFR (African American) 58 ML/MIN (>60); Globulin 4.0 g/dL (1.3-3.2); Glucose 105 mg/dl (74-100); Potassium 4.1 mmoL/L (3.5-5.1); Sodium 139 mmol/L (136-145); Total Protein,Serum 7.9 g/dl (6.3-8.2)
== END 2025-04-16 23:59 | disposition home or self-care (01) ==
LOC: LAB.DROPOF 11:49
PROVIDERS: PCP Nurse Practitioner Family; Visit Provider Family Medicine
DX: M62.81 Muscle weakness (generalized) (principal); E78.5 Hyperlipidemia, unspecified; J44.0 Chronic obstructive pulmonary disease with (acute) lower respiratory infection; J20.0 Acute bronchitis due to Mycoplasma pneumoniae; R30.0 Dysuria
CPT/HCPCS: 80053; 85025; 87631

== ENCOUNTER 2025-04-16 16:40 | Outpatient (CLI) | payer MEDICARE, MEDICAID, SELFPAY ==
--- OUTSIDE RECORDS SUMMARY | 2025-04-16 16:44 | XMS_ITS | Clinical Summary ---
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 Name Role Phone Amada ELKINS, Mary Jo Rodriguez Unavailable Conditions or Problems Problem Name Problem Code Onset Date Status Entry Date Provider Comment Standard Description Annotate PSORIASIS 0257642 (SNOMED CT) Active Ifeanyi Shaver MD Psoriasis OBESITY 524436718 (SNOMED CT) Active Ifeanyi Shaver MD Obesity [...] Instructions Start Date Stop Date Generic Name [facility] Provider ACIDOPHILUS PROBIOTIC BLEND CAPS PROBIOTIC PRODUCT 12042639921 Mary Jo Ybarra RN ESTRACE 1 MG TABS ESTRADIOL 73757738115 Mary Jo Ybarra RN TRIAMCINOLONE ACETONIDE 0.1 % OINT Twice daily to rash. TRIAMCINOLONE ACETONIDE 26325592407 Ifeanyi Shaver MD XOPENEX HFA AERO LEVALBUTEROL TARTRATE AERO 52036763193 Renetta Bah TRIHEXYPHENIDYL HCL TABLET TRIHEXYPHENIDYL HCL TABS 55673479550 Renetta Bah TRIAMCINOLONE POWD TRIAMCINOLONE 78687003333 Renetta Bah SPIRIVA HANDIHALER CAPS TIOTROPIUM BROMIDE MONOHYDRATE CAPS 16153256109 Renetta Bah PROAIR HFA AEROSOL SOLUTION ALBUTEROL SULFATE AERS 91041987691 Renetta Bah POTASSIUM CHLORIDE ER CAPSULE EXTENDED RELEASE POTASSIUM CHLORIDE CR-CAPS 92790098942 Renetta Bah RA OMEPRAZOLE TBEC OMEPRAZOLE TBEC 08225332593 Renetta Bah NYSTOP POWD NYSTATIN POWD 34054636912 Renetta Bah METOLAZONE TABS METOLAZONE TABS 36705827310 Renetta Bah LEXAPRO TABS ESCITALOPRAM OXALATE TABS 77994183000 Renetta Bah LEVOTHROID TABS LEVOTHYROXINE SODIUM TABS 06731741463 Renetta Bah LAMICTAL TABS LAMOTRIGINE TABS 75680627850 Renetta Bah IBUPROFEN CAPS IBUPROFEN CAPS 31082117230 Renetta Bah HIBICLENS LIQUID CHLORHEXIDINE GLUCONATE LIQD 07612497538 Renetta Bah LASIX TABS FUROSEMIDE TABS 96332551147 Renetta Bah LITHIUM CARBONATE CAPS LITHIUM CARBONATE CAPS 28711095017 Renetta Bah ELOCON OINTMENT MOMETASONE FUROATE OINT 09965975445 Renetta Bah CLONAZEPAM TABS CLONAZEPAM TABS 17239252422 Renetta Bah RILEY ASPIRIN TABS ASPIRIN TABS 16782210224 Renetta Bah BACTROBAN MUPIROCIN OINT 72980441436 Renetta Bah ABILIFY TABS ARIPIPRAZOLE TABS 49791703461 Renetta Bah Medications Administered No information available. [...]
[2025-04-16 16:49] LABS: Microscopic, Urine URINE MICROSCOPIC (MICROSCOPIC)
[2025-04-16 17:03] LABS: Bilirubin,Urine Negative (Negative); Color,Urine YELLOW (Yellow); Glucose,Urine (UA) Negative (Negative); Ketones,Urine TRACE (Negative); Leukocyte Esterase,Urine 1+ (Negative); PH,Urine 6.0 (5.0-8.5); Protein,Urine TRACE (Negative); Specific Gravity, Urine >= 1.030 (1.005-1.030); Urobilinogen,Urine 0.2 EU/dl (0.2)
[2025-04-16 19:19] LABS: Amorphous Sediment,Urine 2+ /lpf; Bacteria,Urine 2+ /lpf
== END 2025-04-16 23:59 | disposition home or self-care (01) ==
LOC: LAB.DROPOF 16:42
PROVIDERS: PCP Family Medicine; Visit Provider Family Medicine
DX: E78.5 Hyperlipidemia, unspecified (principal); M62.81 Muscle weakness (generalized); J44.9 Chronic obstructive pulmonary disease, unspecified; J20.0 Acute bronchitis due to Mycoplasma pneumoniae; R30.0 Dysuria
CPT/HCPCS: 80053; 81001; 85025; 87086; 87631